=== PATIENT | male | born 1995 | race Caucasian/White ===

== ENCOUNTER → 2017-11-18 09:53 | Outpatient (CLI) | payer OTHER, SELFPAY ==
--- NOTE | 2017-11-18 10:08 | RAD_ITS ---
STUDY: X-RAY - LUMBAR SPINE REASON FOR EXAM: Male, 22 years old. Chronic low back pain. Bilateral sciatica. TECHNIQUE: 3 view(s) of the lumbar spine were obtained. COMPARISON: None FINDINGS: Normal lumbar lordosis. There is a mild levoscoliosis of the lumbar spine. There is a normal alignment of the vertebrae. Mild degree of anterior spondylosis at the L1-L2 level. Disc space narrowing at the L4-L5 and L5-S1 levels. The soft tissue structures are unremarkable. RAD/Lumbar Spine 2 or 3 Views IMPRESSION: Degenerative changes of the spine, as detailed above. Electronically Signed: Aquiles Younger MD at 15:50 EDT Tel [phone], Service support ,
== END ==
PROVIDERS: Family Provider Family Medicine; PCP Family Medicine; Visit Provider Family Medicine
DX: M54.42 Lumbago with sciatica, left side (principal); M54.41 Lumbago with sciatica, right side; G89.29 Other chronic pain
CPT/HCPCS: 72100

== ENCOUNTER 2017-11-26 17:20 | Emergency (ER) | payer OTHER, SELFPAY ==
[2017-11-26 17:02] VITALS: BP 149/86; PULSE 94; RESP 16; TEMP 37.1; O2SAT 97
[2017-11-26 17:03] VITALS: BP 149/86; PULSE 100; RESP 16; TEMP 37.1; O2SAT 96; BMI 36.6
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
[2017-11-26] MEDS: Ibuprofen 400 MG Tablet 800 MG PO (18:24)
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
== END 2017-11-26 19:00 | disposition home or self-care (01) ==
PROVIDERS: Emergency Provider Emergency Medicine; Family Provider Family Medicine; PCP Family Medicine
DX: S93.401A Sprain of unspecified ligament of right ankle, initial encounter (principal); V49.60XA Unspecified car occupant injured in collision with unspecified motor vehicles in traffic accident, initial encounter; Y93.9 Activity, unspecified; Y92.9 Unspecified place or not applicable; Y99.9 Unspecified external cause status
CPT/HCPCS: 73610; 99285

== ENCOUNTER → 2018-02-25 15:14 | Outpatient (CLI) | payer OTHER, SELFPAY ==
--- NOTE | 2018-02-25 | TONS_PTH ---
PATIENT: ASA PALACIO JES LOC: [facility] U#:[id number] AGE/SX: 29/M ROOM: RE02/25/[address]: Dr. Viet Polanco MD : 1995 BED: DIS: SPEC #: [id number] RECD: 02/26/18 13:16 STATUS: ARSENIO GAIL #: [id number] MIGUEL: 02/25/18 00:[address]: Viet Polanco DEPT: SURGICAL PATHOLOGY RECD BY: Gumaro Almendarez ENTERED: 02/26/18 13:17 SP TYPE: TONSILS OTHR DR: Dr. Rajat Main III, MD [facility] Tissues: Tonsil, NOS Procedures: Surgery Specimen Level III HEADER OPERATION: Tonsillectomy PRE-OP DIAGNOSIS: Acute tonsillitis TISSUE SUBMITTED: Tonsils (right tagged with pin) MICROSCOPIC DIAGNOSIS Right and left tonsils, bilateral tonsillectomies: Benign lymphoid follicular hyperplasia, consistent with chronic tonsillitis. Organisms consistent with actinomyces. AM:tristan 02/27/18 MICROSCOPIC DESCRIPTION Slides are reviewed. GROSS DESCRIPTION Received is one container labeled with the patient's name and designated tonsils - pin on right are two tonsils that in aggregate weigh 14.1 gm. The right tonsil has a pin on it and measures 3.5 x 2 x 2 cm. The left tonsil measures 3.6 x 1.5 x 1.5 cm. Both tonsils are similar in appearance. The external surfaces are pink-richard, smooth, glistening and somewhat lobulated. Focally they are hemorrhagic, granular and bear cautery artifact. Serial cross sections through the tonsils reveal normal tonsillar architecture. Sections are submitted in two cassettes as follows: 1 - right tonsil, 2 - left tonsil. / AM:tristan 02/26/18 TC:5 CPT: 77130 x2
== END ==
PROVIDERS: Family Provider Family Medicine; PCP Family Medicine; Visit Provider Otolaryngology Otolaryngology/Facial Plastic Surgery
DX: J03.90 Acute tonsillitis, unspecified (principal)
CPT/HCPCS: 88304

== ENCOUNTER 2019-03-22 17:30 | Emergency (ER) | payer OTHER, SELFPAY ==
[2019-03-22 17:30] VITALS: BP 134/85; PULSE 106; RESP 18
[2019-03-22 17:31] VITALS: BP 134/85; PULSE 106; RESP 18; TEMP 36.1; BMI 36.7
--- NOTE | 2019-03-22 17:45 | CT_ITS ---
STUDY: CTA OF THE BRAIN REASON FOR EXAM: Male, 23 years old. Syncope. Headaches. RADIATION DOSAGE (If Supplied By Facility): CTDIvol = ( 26.23 ) mGy, DLP = ( 1276.21 ) mGycm TECHNIQUE: CT angiography was performed with a multi-detector CT scanner. Data acquisition was obtained from the skull base through the vertex following intravenous administration of 100ML IV Isovue 300. MIP images were reconstructed from the axial data set. Post-processing of the angiographic images was performed, with multiplanar reformation and 3D reconstruction. Individualized dose optimization techniques were used for this CT. COMPARISON: None. FINDINGS: There is no acute bleed or infarct. The ventricles are normal in configuration. Normal bilateral petrous carotid arteries. Normal right cavernous carotid artery with a normal supraclinoid bifurcation. Normal left cavernous carotid artery with a normal supraclinoid bifurcation. Normal right A1 segments of the anterior cerebral artery. Normal left A1 segments of the anterior cerebral artery. Normal intact anterior communicating artery (ACOM). Normal bilateral A2 segments of the anterior cerebral arteries. Normal right M1 and M2 segments of the middle cerebral arteries, with a normal M1 bifurcation. Normal left M1 and M2 segments of the middle cerebral arteries, with a normal M1 bifurcation. Normal right posterior communicating artery (PCOM). Normal left posterior communicating artery (PCOM). Normal bilateral vertebral arteries. Normal basilar artery with a normal basilar bifurcation. The visualized bilateral superior cerebellar (SCA) arteries are normal. Normal bilateral P1, P2 and visualized P3 segments of the posterior cerebral arteries. There is no demonstrated aneurysm of the [place] of [place]. There is no demonstrated abnormality of the visualized brain. CT/CTA Head W/WO Contrast IMPRESSION: Normal CT angiograms of the brain. No acute intracranial abnormality. Electronically Signed: Chevy Duran, at 18:36 EDT Tel , Service support ,
[2019-03-22 18:45] VITALS: BP 147/80; PULSE 81; RESP 22; O2SAT 97
--- NOTE | 2019-03-22 18:45 | EKG12_ITS ---
Test Reason : Blood Pressure : / mmHG Vent. Rate : 074 BPM Atrial Rate : 074 BPM P-R Int : 172 ms QRS Dur : 098 ms QT Int : 366 ms P-R-T Axes : 028 050 021 degrees QTc Int : 406 ms Normal sinus rhythm Normal ECG Confirmed by POLLO BRUNER, CAROLINE ([id number]), science editor NAVID THOMASON ([id number]) on 03/23/2019 9:12:09 AM Referred By: NESTOR Confirmed By:CAROLINE ABAD MD
--- NOTE | 2019-03-22 18:49 | ED.RN ---
NO OLD EKGS IN MUSE
[2019-03-22] MEDS: Ketorolac 30 MG/ML Syringe IV (18:53)
[2019-03-22] MEDS: DiphenhydrAMINE 50 MG/ML Syringe 25 MG IV ×2 (18:53→19:13)
[2019-03-22] MEDS: Metoclopramide 10 MG/2 ML Vial IV (18:53)
[2019-03-22 18:57] LABS: Absolute Lymphocyte Count 1.41 X10^3/uL (0.83-4.51); Absolute Neutrophil Count 5.9 X10^3/uL (2.0-7.7); Basophil# 0.02 X10^3/uL; Basophil% 0.3 % (0-1); Eosinophil# 0.02 X10^3/uL; Eosinophils% 0.3 % (0-5); Hemoglobin 13.8 g/dL (13.0-16.5); Lymphocyte # 1.41 X10^3/ul (4.0); Lymphocyte % 17.8 % (19-41); Mean Corp Hgb Conc 32.9 g/dL (32-36); Mean Corpuscular Hgb 28.5 pg (27.0-32.0); Mean Corpuscular Volume 86.6 fL (80-94); Mean Platelet Vol. 10.7 fl (6.2-12.0); Monocyte# 0.54 X10^3/uL; Monocyte% 6.8 % (0-10); NRBC Flagged by Analyzer 0 % (0-5); Neutrophil % 74.4 % (47-70); Platelet Count 221 K/mm3 (150-450); RBC Distribution Width SD 40.9 fl (35.1-43.9); Red Blood Count 4.85 M/mm3 (4.6-6.2); White Blood Count 7.9 K/mm3 (4.4-11.0)
[2019-03-22 19:04] VITALS: BP 118/102; PULSE 103; RESP 26
[2019-03-22 19:14] LABS: Anion Gap 10 (5-15); BUN 15 mg/dL (7-18); BUN/Creat Ratio 12.9 RATIO (10-20); Calcium,Total 9.1 mg/dL (8.5-10.1); Chloride 105 mmol/L (98-107); Creatinine, Serum 1.16 mg/dL (0.70-1.30); EST Glomerular Filtration Rate 81 mL/min (>60); Est Glom Filt Rate - Afr Amer 98 mL/min (>60); Estimated Creatinine Clearance 106.85 ml/min; Glucose 88 mg/dL (74-106); Sodium Level 142 mmol/L (136-145)
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
--- NOTE | 2019-03-22 19:22 | ED.DEP ---
ED Disposition - Plan for ED Patient: Instructions: SYNCOPE, Unk Cause, HEADACHE, Unspecified Referrals: Rajat Main III, MD [Primary Care Provider] - Additional Instructions: see your Neurologist this week I recommend that you not drive until you see neurologist
[2019-03-22 19:42] VITALS: BP 138/82; PULSE 75; RESP 22; O2SAT 99
== END 2019-03-22 19:44 | disposition home or self-care (01) ==
LOC: ED 18:13
PROVIDERS: Emergency Provider Emergency Medicine; Family Provider Family Medicine; PCP Family Medicine
DX: R55 Syncope and collapse (principal); R51 Headache; F17.290 Nicotine dependence, other tobacco product, uncomplicated
CPT/HCPCS: 70496; 80048; 85025; 93005; 96374; 96375; 99284; Q9967; A4216

== ENCOUNTER → 2019-09-15 | Outpatient (CLI) | payer OTHER, SELFPAY ==
--- NOTE | 2019-09-15 16:34 | RAD_ITS ---
STUDY: X-RAY CHEST REASON FOR EXAM: Male, 24 years old. COUGH X 3 MONTHS, WORSE THE PAST 3 WEEKS TECHNIQUE: PA and lateral views of the chest. COMPARISON: 11/09/2013. FINDINGS: The lungs are clear and underexpanded. There is mild vascular crowding. There is no demonstrated pleural abnormality. Normal size heart. Normal mediastinum and trina. Normal visualized pulmonary arteries. Normal visualized aortic arch and descending thoracic aorta. Normal visualized thoracic spine. Normal visualized ribs, clavicles, and shoulders. There is no demonstrated abnormality of the visualized soft tissue structures of the upper abdomen. RAD/Chest PA and Lateral IMPRESSION: Normal x-ray examination of the chest. Electronically Signed: Parisa Montana MD at 0:53 EDT , Service support ,
== END | disposition home or self-care (01) ==
LOC: RAD.FUTURE 16:31
PROVIDERS: PCP Family Medicine; Referring Provider Otolaryngology Otolaryngology/Facial Plastic Surgery; Visit Provider Otolaryngology Otolaryngology/Facial Plastic Surgery
DX: R05 Cough (principal)
CPT/HCPCS: 71046

== ENCOUNTER → 2022-06-27 | Outpatient (CLI) | payer BC, SELFPAY | END | disposition home or self-care (01) | LOC: LABSPEC 15:06 | PROVIDERS: Referring Provider Otolaryngology Otolaryngology/Facial Plastic Surgery; Visit Provider Otolaryngology Otolaryngology/Facial Plastic Surgery | DX: J02.9 Acute pharyngitis, unspecified (principal) | CPT/HCPCS: 87070; 87077 ==

== ENCOUNTER 2022-09-04 08:05 | Emergency (ER) | payer BC, SELFPAY ==
[2022-09-04 08:05] VITALS: BP 136/88; PULSE 70; RESP 14; TEMP 36.4; O2SAT 99; BMI 42.0
--- NOTE | 2022-09-04 08:42 | ED.VIS.BACK ---
HPI History of Present Illness Chief Complaint: Back Informant: patient Onset/Context/Timing Onset: Weeks (1) Context: Gradual Onset (After repeated bending over at work without heavy lifting) Timing: Continuous (Not colicky) Quality: Aching Location: Lumbar (Right, and into right groin and testicle as well) Current Severity: Moderate Maximum Severity: Severe Worsened by: improves with Movement, Ambulation and Bending Relieved by: Remaining Still Associated Symptoms Associated Symptoms: - (Difficulty bending over to put on pants today due to pain); Negative for Numbness, Tingling, Radiation to Right Leg, Radiation to Left Leg, Fever, Abdominal Pain, Dysuria, Unable to Transfer, Urinary Retention, Urinary Incontinence, Constipation or Fecal Incontinence Narrative Narrative: Patient states 1 week ago 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 He states he and his friend both had pain in their low back, but the friend got better within a day or 2 and his has persisted. Now it is hurting into his right groin and testicle/scrotum. He denies any radiation into his right lower extremity, no weakness or numbness, no bowel or bladder dysfunction. No other injury or obvious explanation for this pain to be musculoskeletal. PFSH PFSH Medical History no medical history no medical history Home Medications ibuprofen 800 mg tablet 800 mg PO PRN PRN Pain 03/22/19 [History Last Taken Unknown] orphenadrine citrate 100 mg tablet,extended release 100 mg PO BID #14 tabs 09/04/22 [Rx Last Taken Unknown] tramadol 50 mg tablet 50 mg PO Q6H PRN pain 3 days #12 tabs 09/04/22 [Rx Last Taken Unknown] Allergy/AdvReac Type Severity Reaction Status Date / Time amoxicillin [Amoxicillin] Allergy Rash Verified 09/04/22 08:08 Social History Smoking Status: Current some day smoker tobacco type: cigarettes ROS ROS ED Constitutional Constitutional ED: Denies chills or fever(s) Gastrointestinal Gastrointestinal: Denies abdominal pain, constipation, fecal incontinence, nausea or vomiting Genitourinary Genitourinary ED: Reports other Details: no urinary retention. Right scrotal pain see HPI. ; Denies abdominal discomfort, dysuria, hematuria or urinary incontinence Musculoskeletal Musculoskeletal: Reports as per HPI and back pain; Denies neck pain Integumentary Denies rash or wounds Neurologic Neurologic: Denies headache(s), paresthesias or weakness EXAM Physical Exam Const Vital Signs: 09/04/22 08:05 Temperature 97.6 F L Temperature Source Temporal Pulse Rate 70 Respiratory Rate 14 Blood Pressure 136/88 H Blood Pressure Mean 104 Pulse Ox 99 Oxygen Delivery Method Room Air Positive well nourished and well developed General Appearance ED: well developed and NAD HEENT Negative for trauma or tenderness Eyes PERRL and EOMs intact bilaterally Neck full ROM and supple GI normal to inspection, nondistended, normoactive bowel sounds, soft to palpation and non-tender Narrative: Normal scrotum and penis, no testicular tenderness, no scrotal mass. No inguinal lymphadenopathy. No hernia palpated. Back/Spine normal to inspection Back/Spine Narrative: Able to reproduce patient's pain with palpation throughout the right lumbosacral paraspinal area including SI joints, not really tender at the sciatic notch. Lumbar Spine / Lower Back: ROM limited, paraspinal muscle tenderness right and straight leg raise negative bilaterally; Negative for lumbar spinal tenderness Extremity normal to inspection, full ROM and no pedal edema Neuro oriented x3 and no sensory deficits noted Sensorium / Orientation: alert Motor Exam: strength 5/5 throughout and clonus absent Deep Tendon Reflexes: Rt Patellar (L4): 2+, Lt Patellar (L4): 2+, Rt Ankle (S1): 2+ and Lt Ankle (S1): 2+ Deep Tendon Reflexes Back: Rt Patellar (L4): 2+, Lt Patellar (L4): 2+, Rt Ankle (S1): 2+ and Lt Ankle (S1): 2+ Plantar Reflex: Downgoing: bilateral Psych mental status grossly normal and thought process normal Skin no rashes or lesions noted and no wounds MDM MDM MDM Narrative Medical decision making narrative: Treated the patient with Toradol and Norflex while obtaining a urinalysis, screening for kidney stone. The urinalysis is negative for blood, there is some protein there, which is nonspecific. The medications did help some, but he was still having the groin pain so we thought it was reasonable to go ahead and obtain a CT of the abdomen/pelvis to evaluate further, kidney stone being the more likely, although his exam is really less consistent with that. It is negative for anything acute, but does show fatty liver. I discussed that with him and outpatient follow-up, we will treat his back pain is musculoskeletal in etiology. He is comfortable with that plan. I reviewed the CT images. My interpretation of the CT agrees with that of the radiologist. Lab Data Attestation: I reviewed the patient's lab results. Labs: Laboratory Results - last 24 hr 09/04/22 09:46 Urine Color Yellow Urine Clarity Clear Urine pH 5.0 Ur Specific [place] 1.025 Urine Protein 30 H Urine Glucose (UA) Normal Urine Ketones Negative Urine Occult Blood Negative Urine Nitrite Negative Urine Bilirubin Negative Urine Urobilinogen Normal Ur Leukocyte Esterase Negative Urine RBC 0-5 SEEN Urine WBC 0-5 SEEN Ur Squamous Epith Cells 0-5 SEEN Urine Bacteria 2+ Urine Mucus 2+ Radiography Diagnostic Testing: Clinical Impression(s) from Imaging Studies Abdomen/Pelvis CT 09/04/22 10:27 IMPRESSION: Fatty infiltration of the liver. Electronically Signed: Aquiles Younger MD at 10:54 EST , Discharge Plan Triage Chief Complaint: Back ED Provider: Khalif Bañuelos Dx/Rx/DC Orders Clinical Impression: Acute lumbosacral myofascial strain, Fatty liver Instructions: ED Back Sprain/Strain Prescriptions: New orphenadrine citrate 100 mg tablet extended release 100 mg PO BID Qty: 14 0RF tramadol 50 mg tablet 50 mg PO Q6H PRN (Reason: pain) 3 Days Qty: 12 0RF No Action ibuprofen 800 MG tablet 800 mg PO PRN PRN (Reason: Pain) Label Comments: TAKE 1 TABLET BY MOUTH EVERY 6 TO 8 HOURS NEEDED FOR PAIN MAX 3 IN24 HOURS Primary Care Provider: Nena Barrios Referrals: Nena Barrios, PA [Primary Care Provider] - 1-2 Weeks Disposition Disposition: Home, Self Care
[2022-09-04] MEDS: Orphenadrine 60 MG/2 ML Ampul IM (09:05)
[2022-09-04] MEDS: Ketorolac 60 MG/2 ML Vial IM (09:05)
[2022-09-04 09:55] LABS: Color, Urine Yellow (Yellow); Glucose, Dipstick Normal (Normal); Ketone-Dipstick Negative (Negative); Leukocyte Esterase-Dipstick Negative /ul (Negative); Nitrite-Dipstick Negative (Negative); Occult Blood-Urine Negative /ul (Negative); Protein-Dipstick 30 mg/dl (Negative); Specific Gravity, Urine 1.025 (1.002-1.030); Urine Bilirubin Dipstick Negative (Negative); Urine Clarity Clear (Clear); Urine Urobilinogen Normal (Normal)
[2022-09-04 10:03] LABS: Bacteria 2+ /hpf (None Seen); Mucous, Urine 2+ /hpf (<or=2+); Red Blood Cells-Urine 0-5 SEEN /hpf (0-5); Squamous Epithelial Cells - UA 0-5 SEEN /hpf (0-5); White Blood Cells 0-5 SEEN /hpf (0-5)
--- NOTE | 2022-09-04 10:27 | CT_ITS ---
STUDY: CT ABDOMEN AND PELVIS WITHOUT CONTRAST REASON FOR EXAM: Male, 26 years old. Right flank pain and low back pain. RADIATION DOSAGE (If Supplied By Facility): CTDIvol = ( 18.64 ) mGy, DLP = ( 1622.80 ) mGycm TECHNIQUE: Transaxial images were obtained from the dome of the diaphragm to the symphysis pubis without oral contrast, and without intravenous contrast. Sagittal and coronal images were reconstructed. Individualized dose optimization techniques were used for this CT. COMPARISON: Comparison is made with prior study dated November 09, 2013. FINDINGS: The visualized lung bases are unremarkable. The visualized portions of the heart are within normal limits. There is decreased attenuation of the liver consistent with steatosis. Normal gallbladder and extrahepatic biliary system. Normal spleen. Normal pancreas. Normal bilateral adrenal glands. Normal right kidney. Normal left kidney. Normal visualized stomach. Normal small intestine. Normal colon. The appendix is visualized and appears normal. Normal abdominal aorta. Normal inferior vena cava. Normal retroperitoneum. Normal urinary bladder. Normal abdominal wall. There are mild degenerative changes of the visualized lumbar spine. Loss of the normal lumbar lordosis. CT/Abdomen/Pelvis without Cont IMPRESSION: Fatty infiltration of the liver. Electronically Signed: Aquiles Younger MD at 10:54 EST ,
[2022-09-04 12:36] VITALS: BP 129/87; PULSE 86; RESP 14; O2SAT 99
== END 2022-09-04 12:37 | disposition home or self-care (01) ==
PROVIDERS: Emergency Provider Emergency Medicine; PCP Physician Assistant; Visit Provider Emergency Medicine
DX: S39.012A Strain of muscle, fascia and tendon of lower back, initial encounter (principal); K76.0 Fatty (change of) liver, not elsewhere classified; F17.210 Nicotine dependence, cigarettes, uncomplicated; X50.1XXA Overexertion from prolonged static or awkward postures, initial encounter; Y99.0 Civilian activity done for income or pay
CPT/HCPCS: 74176; 81001; 96372; 99282

== ENCOUNTER 2024-03-01 00:22 | Emergency (ER) | payer BC, SELFPAY ==
[2024-03-01] VITALS (8 sets, daily range): BP systolic 120–142; BP diastolic 71–91; PULSE 88–102; RESP 20–28; TEMP 37.1–37.6; O2SAT 94–98; BMI 38.4
--- NOTE | 2024-03-01 00:52 | EKG12_ITS ---
Test Reason : CP Blood Pressure : / mmHG Vent. Rate : 101 BPM Atrial Rate : 101 BPM P-R Int : 178 ms QRS Dur : 090 ms QT Int : 326 ms P-R-T Axes : 044 049 025 degrees QTc Int : 422 ms Sinus tachycardia Otherwise normal ECG Confirmed by POLLO BRUNER, CAROLINE ([id number]), offline editor MORGAN GUNTER ([id number]) on 03/03/2024 8:15:58 AM Referred By: TL Confirmed By:CAROLINE ABAD MD
--- NOTE | 2024-03-01 00:52 | CT_ITS ---
EXAM: CT HEAD WITHOUT INTRAVENOUS CONTRAST CLINICAL INDICATION: headache TECHNIQUE: Multiple axial images were obtained of the head without intravenous contrast. This CT exam was performed using one or more of the following dose reduction techniques: automated exposure control, adjustment of the mA and/or kV according to patient size, and/or use of iterative reconstruction technique. RADIATION DOSE: CTDIvol = 44.99 mGy, DLP = 812.98 mGy-cm COMPARISON: Head CT 03/23/2011 FINDINGS: BRAIN AND EXTRA-AXIAL SPACES: Unremarkable. No intra- or extra-axial hemorrhage. No evidence of acute infarct. No intracranial mass or mass effect. There is preservation of the borges/white matter interface. Posterior fossa structures are unremarkable. Ventricles are appropriate for age. No hydrocephalus. Basal cisterns are patent. BONES/JOINTS: Unremarkable. No discrete lytic or blastic abnormalities. SINUSES: Unremarkable as visualized. Clear. MASTOID AIR CELLS: Unremarkable. Clear. ORBITS: Visualized globes, extraocular muscles, optic nerves and retrobulbar fat appear unremarkable. CT/Brain/Head without Contrast IMPRESSION: Negative head/brain CT without intravenous contrast. Electronically Signed: Yoni Nair MD at 1:38 EDT ,
[2024-03-01 00:59] LABS: Absolute Neutrophil Count 5.8 X10^3/uL (2.0-7.7); Basophil# 0.03 X10^3/uL; Basophil% 0.4 % (0-1); Eosinophil# 0.05 X10^3/uL; Eosinophils% 0.7 % (0-5); Hemoglobin 13.4 g/dL (13.0-16.5); Lymphocyte % 6.8 % (19-41); Mean Corp Hgb Conc 32.7 g/dL (32-36); Mean Corpuscular Hgb 27.9 pg (27.0-32.0); Mean Corpuscular Volume 85.2 fL (80-94); Mean Platelet Vol. 11.7 fl (6.2-12.0); Monocyte# 0.95 X10^3/uL; NRBC Flagged by Analyzer 0 % (0-5); Neutrophil # 5.76 X10^3/uL (2.7-7.7); Neutrophil % 78.8 % (47-70); POSITIVE DIFFERENTIAL YES; Platelet Count 180 K/mm3 (150-450); RBC Distribution Width CV 13.2 % (11.6-14.6); RBC Distribution Width SD 41.1 fl (35.1-43.9); Red Blood Count 4.81 M/mm3 (4.6-6.2); White Blood Count 7.3 K/mm3 (4.4-11.0)
[2024-03-01] MEDS: DiphenhydrAMINE 50 MG/ML Syringe 25 MG IV (01:09)
[2024-03-01] MEDS: 0.9% Normal Saline (500mL Bag) 500 ML 999 ML IV (01:09)
[2024-03-01] MEDS: Metoclopramide 10 MG/2 ML Vial 5 MG IV (01:10)
[2024-03-01 01:18] LABS: Anion Gap 8 (5-15); BUN 16 mg/dL (7-18); BUN/Creat Ratio 12.3 RATIO (10-20); Calcium,Total 9.3 mg/dL (8.5-10.1); Chloride 107 mmol/L (98-107); EST Glomerular Filtration Rate 69 mL/min (>60); Est Glom Filt Rate - Afr Amer 83 mL/min (>60); Estimated Creatinine Clearance 115.12 ml/min; Glucose 115 mg/dL (74-106); Potassium 3.6 mmol/L (3.5-5.1); Sodium Level 139 mmol/L (136-145); Troponin-I HS (w/2H Reflex) 4 pg/mL (3.0-78.0)
--- NOTE | 2024-03-01 01:30 | RAD_ITS ---
EXAM: XR CHEST, 2 VIEWS CLINICAL INDICATION: chest pain TECHNIQUE: Frontal and lateral views of the chest. COMPARISON: 2 view chest 09/15/2019 FINDINGS: LUNGS AND PLEURAL SPACES: Unremarkable. No consolidation or edema. No pneumothorax. No effusion. HEART: Unremarkable. Cardiac silhouette not enlarged. MEDIASTINUM: Central airways and mediastinal contour are unremarkable. BONES/JOINTS: Unremarkable. No acute fracture. SOFT TISSUES: Unremarkable. RAD/Chest PA and Lateral IMPRESSION: No radiographic evidence of acute cardiopulmonary disease. Electronically Signed: Yoni Nair MD at 2:04 EDT ,
--- NOTE | 2024-03-01 01:53 | ED.VIS.CHEST ---
HPI History of Present Illness Chief Complaint: Chest Pain Informant: patient and spouse/S.O. Narrative Narrative: Presents chest heaviness tingling down left arm started couple hours prior to arrival. Mild dyspnea. No cough. No vomiting. Nontraumatic headache for 2 days throbbing. No medications taken. He was at a coffee tasting today at 1 PM small sips of coffee finished at 2 PM. He felt slight racing heart around 6 PM. Denies recent travel, surgery, or immobilizations. No history of PE or DVT. He smokes occasional cigars. Grandfather with MS at age of 70. Denies hypertension, diabetes or hyperlipidemia. Denies history of similar. Prior Similar Symptoms: No CVD Risk Factors: Negative for Hypertension, Diabetes, Hypercholesterolemia, Family History 1' </=55 or Smoking PE Risk Factors: Negative for Recent Travel/Surgery, Recent Immobilization or Prior DVT or PE [facility] Medical History no medical history Home Medications ?Medication ?Instructions ?Recorded ?Last Taken ?Type NK 03/01/24 Unknown History Allergy/AdvReac Type Severity Reaction Status Date / Time amoxicillin (Amoxicillin) Allergy Rash Verified 03/01/24 00:24 Surgical History History of tonsillectomy Social History Smoking Status: Current some day smoker tobacco type: cigarettes ROS ROS ED Constitutional Constitutional ED: Denies chills, fever(s) or sweats Eyes Eyes: Denies change in vision ENT ENT ED: Denies dysphagia or sore throat Cardiovascular Cardiovascular: Reports chest pain; Denies leg edema, palpitations or racing heartbeat Respiratory/Chest Respiratory/Chest: Reports dyspnea; Denies cough or dyspnea on exertion Gastrointestinal Gastrointestinal: Denies abdominal pain, diarrhea, nausea or vomiting Genitourinary Genitourinary ED: Denies dysuria, hematuria or urinary frequency Musculoskeletal Musculoskeletal: Denies back pain, extremity pain or neck pain Integumentary Denies rash or wounds Neurologic Neurologic: Reports headache(s); Denies paresthesias or weakness EXAM Physical Exam Const Vital Signs: 03/01/24 00:22 03/01/24 00:25 03/01/24 01:16 Temperature 99.6 F H Temperature Source Oral Pulse Rate 102 H 90 Respiratory Rate 26 H 20 H Respiratory Effort Normal Non-Labored Blood Pressure 142/80 H Blood Pressure Mean 100 Pulse Ox 96 98 Oxygen Delivery Method Room Air 03/01/24 01:30 03/01/24 01:36 03/01/24 01:45 Temperature Temperature Source Pulse Rate 93 88 Respiratory Rate 27 H 27 H Respiratory Effort Blood Pressure 120/71 140/86 H Blood Pressure Mean 79 101 Pulse Ox 97 98 Oxygen Delivery Method 03/01/24 02:00 03/01/24 02:15 Temperature 98.7 F Temperature Source Oral Pulse Rate 89 91 Respiratory Rate 28 H 27 H Respiratory Effort Blood Pressure 140/87 H 142/91 H Blood Pressure Mean 102 105 Pulse Ox 97 96 Oxygen Delivery Method Room Air Room Air Positive well nourished and well developed General Appearance ED: well developed and NAD HEENT Reports moist mucous membranes normocephalic and atraumatic Eyes EOMs intact bilaterally and conjunctivae normal General Eye ED: Yes normal appearance of both eyes Neck no lymphadenopathy and supple Neck Narrative: No meningismus General: Negative for tenderness Chest Wall Chest: Negative for tenderness Resp normal respiratory effort and normal air movement Effort and Inspection: symmetric chest movement; Negative for respiratory distress Cardio regular rhythm and no murmurs Rate: tachycardic Peripheral Pulses: pulses 2+ throughout GI normal to inspection, nondistended, normoactive bowel sounds and non-tender Palpation: Negative for guarding or rebound tenderness present Back/Spine no CVA tenderness and no thoracic nor lumbar tenderness Extremity normal to inspection General Extremety ED: Negative for edema or tenderness General Extremity: Negative for edema Neuro oriented x3, CN's II-XII intact bilaterally and no sensory deficits noted Sensorium / Orientation: awake and alert Skin no rashes or lesions noted and no wounds Heart Score History: Slightly/Non-Suspicious ECG: Normal Age: </= 45 years Risk Factors: 1 or 2 Risk Factors Troponin: </= Normal Limit Score: 1 MDM MDM MDM Narrative Medical decision making narrative: Interventions / MDM: Differential diagnosis: Atypical chest pain, headache Diagnosis considered but do not suspect: No clinical meningitis, pulmonary embolism with low risk Wells criteria with a negative D-dimer. Pneumothorax however chest x-ray negative. ACS however EKG without ischemic findings and negative cardiac enzymes. My EKG interpretation: Sinus rate of 101, no ST changes isolated T wave version leads III. Nonspecific. Imaging independently reviewed and interpreted by myself: 2 view chest x-ray: No acute process. CT brain: No acute process also read by radiology. External documents reviewed: N/A Test considered but not ordered:N/A ED course: Presenting with chest tightness arm tingling. EKG nonspecific T wave inversion leads I. Low risk Wells criteria for PE with tachycardia. Cardiac workup initiated along with D-dimer. No clinical meningitis. New nontraumatic headache for [address] head ordered. Fluids Reglan Benadryl ordered for symptoms. Will reevaluate. 0145: Initial troponin D-dimer negative. CT head negative. Chest x-ray added negative. 0205: Symptoms subsided. Awaiting for delta troponin. 0330: Repeat troponin negative. Remains symptom-free. Discharged outpatient follow-up, return precaution discussed. All questions were answered. Re-evaluation: stable Disposition discussed with patient/family/significant other: Patient and significant other Case discussed with consulting clinician: N/A This note was generated with [employer] dictation software. It may contain incorrect words, spelling, and punctuation that were not noted in checking the note before signing. Lab Data Attestation: I reviewed the patient's lab results. Labs: Laboratory Results - last 24 hr 03/01/24 03/01/24 00:25 02:25 WBC 7.3 RBC 4.81 Hgb 13.4 Hct 41.0 MCV 85.2 MCH 27.9 MCHC 32.7 RDW Std Deviation 41.1 RDW Coeff of Lex 13.2 Plt Count 180 MPV 11.7 Immature Gran % (Auto) 0.300 Neut % (Auto) 78.8 H Lymph % (Auto) 6.8 L [place] % (Auto) 13.0 H Eos % (Auto) 0.7 Baso % (Auto) 0.4 Absolute Neuts (auto) 5.8 Absolute Lymphs (auto) 0.50 L Nucleated RBC % 0 D-Dimer Quant (PE/DVT) 0.40 Sodium 139 Potassium 3.6 Chloride 107 Carbon Dioxide 24.0 Anion Gap 8 BUN 16 Creatinine 1.30 Estim Creat Clear Calc 115.12 Est GFR (MDRD) Af Amer 83 Est GFR (MDRD) Non-Af 69 BUN/Creatinine Ratio 12.3 Glucose 115 H Calcium 9.3 Troponin I High Sens 4 4 Radiography Diagnostic Testing: Clinical Impression(s) from Imaging Studies Brain CT 03/01/24 00:52 IMPRESSION: Negative head/brain CT without intravenous contrast. Electronically Signed: Yoni Nair MD at 1:38 EDT Reading Location ID and State: [facility] / [place] Tel , Service support , Chest X-Ray 03/01/24 01:30 IMPRESSION: No radiographic evidence of acute cardiopulmonary disease. Electronically Signed: Yoni Nair MD at 2:04 EDT , Discharge Plan Triage Chief Complaint: Chest Pain ED Provider: Kye Cobian Dx/Rx/DC Orders Clinical Impression: Chest pain, Headache Instructions: Self-Care for Headaches, ED Chest Pain, Uncertain Cause Prescriptions: No Action NK Primary Care Provider: Nena Barrios Referrals: Nena Barrios PA [Primary Care Provider] - 3-5 Days Activity Restrictions/Additional Instructions: Cardiac workup including D-dimer negative. Chest x-ray negative. CT brain negative. Follow-up with your doctor further testing as an outpatient. Symptoms recurs or worsens, return to ED for reevaluation. Print Language: Dominican Disposition Disposition: Home, Self Care
[2024-03-01 02:56] LABS: Reflex Troponin-HS? (from REC) Y
[2024-03-01 03:29] LABS: Troponin-I HS 4 pg/mL (3.0-78.0)
== END 2024-03-01 03:40 | disposition home or self-care (01) ==
PROVIDERS: Emergency Provider Emergency Medicine; PCP Physician Assistant; Visit Provider Emergency Medicine
DX: R07.9 Chest pain, unspecified (principal); R51.9 Headache, unspecified; F17.210 Nicotine dependence, cigarettes, uncomplicated; F17.290 Nicotine dependence, other tobacco product, uncomplicated
CPT/HCPCS: 70450; 71046; 80048; 84484; 85025; 85379; 93005; 96361; 96374; 96375; 99284

== ENCOUNTER 2024-04-27 17:40 | Emergency (ER) | payer BC, SELFPAY ==
[2024-04-27 17:41] VITALS: BP 135/108; PULSE 102; RESP 16; TEMP 37.1; O2SAT 99; BMI 38.2
--- OUTSIDE RECORDS SUMMARY | 2024-04-27 20:12 | XMS RPT_ITS | CCD ---
Author Organization [facility] Care Team Providers Care Psychic Reader Name Role Phone Nena Barrios PA-C Primary Care Provider [phone] Nena BARRIOS Primary Care Unavailable Nena BARRIOS Primary Care Unavailable Nena BARRIOS Primary Care Unavailable Nena BARRIOS Primary Care Unavailable JOSSELIN GARIBAY Referring Unavailable JOSSELIN GARIBAY Referring Unavailable Nena BARRIOS Primary Care Unavailable JOSSELIN GARIBAY Attending Unavailable Nena BARRIOS Primary Care Unavailable Nena Barrios PA-C Primary Care Provider Allergies Allergy Classification Reported Allergen(s) Allergy Type Date of Onset Reaction(s) Facility (14 sources) Amoxicillin; Translations: [AMOXICILLIN] Drug Allergy 01-11-2011 Rash [facility] Medications Current Medications Medication Drug Class(es) Dates Sig (Normalized) Sig (Original) doxycycline hyclate 100 mg oral tablet (2 sources) Tetracycline-class Drug Start: 4 End: 4 take 1 tablet by mouth twice daily doxycycline (VIBRA-TABS) 100 mg tablet Take 1 tablet by mouth two times a day for 7 days. 14 tablet 0 10/21/2023 10/28/2023 Active methylPREDNISolone (1 source) Corticosteroid Start: 2 End: 2 methylPREDNISolone (MEDROL, PAULIE,) 4 mg Dose-Pack Indications: Poison janelle Follow dosing instructions, take with food. 1 Package 0 01/29/2022 02/04/2022 Active Comment on above: Follow dosing instru ctions, take with food. multivitamin tablet (11 sources) take 1 tablet by mouth once daily multivitamin tablet Take 1 tablet by mouth once daily. Active take 1 tablet by mouth once loc y multivitamin tablet Take 1 tablet by mouth once daily. 0 Active Comment on above: Take 1 tablet by [facility] once daily. predniSONE 20 mg oral tablet (5 sources) Start: 02-11-2024 End: 02-16-2024 take 2 tablets by mouth once daily predniSONE (DELTASONE) 20 mg tablet Take 2 tablets by mouth once daily for 5 days. 10 tablet 0 02/11/2024 02/16/2024 Active Start: 10-21-2023 End: 10-25-2023 take 2 tablets by mouth once daily at mealtime predniSONE (DELTASONE) 20 mg tablet Take 2 tablets by mouth once daily for 4 days. Take daily with food. 8 tablet 0 10/21/2023 10/25/2023 Active Start: 03-20-2023 End: 03-29-2023 predniSONE (DELTASONE) 10 mg tablet Indications: Rash Take 4 tabs daily for 3 days, then 2 tabs daily for 3 days, then 1 tab daily for 3 days with food. 21 tablet 0 03/20/2023 03/29/2023 Active Start: 01-16-2022 End: 01-28-2022 predniSONE (DELTASONE) 10 mg tablet Take 6 tabs for 3 days, then 4 tabs for 3 days, then 2 tabs for 3 days then 1 tab for 3 days with food. 39 tablet 0 01/16/2022 01/28/2022 Active Comment on above: Take 6 tabs for 3 da ys, then 4 tabs for 3 days, then 2 tabs for 3 days then 1 tab for 3 days with food. Take 4 tabs daily fo r 3 days, then 2 tabs daily for 3 days, then 1 tab daily for 3 days with food. triamcinolone acetonide 1 mg/ml topical cream (2 sources) Corticosteroid Start: 01-16-2022 End: 01-31-2022 triamcinolone acetonide (KENALOG) 0.1 % cream Apply 1 application to affected area three times daily for 15 days. Apply sparingly to area for rash/itching. 60 g 0 01/16/2022 01/31/2022 Active Comment on above: Apply 1 application to affected area three times daily for 15 days. Apply sparingly to area for rash/itching. Completed/Discontinued Medications Medication Drug Class(es) Dates Sig (Normalized) Sig (Original) Acetaminophen (2 sources) ACETAMINOPHEN (TYLENOL EXTRA STRENGTH ORAL) Take by mouth as needed. 0 Active Comment on above: Take by mouth as nee ded. acetaminophen 325 mg / butalbital 50 mg / caffeine 40 mg oral tablet (8 sources) Barbiturate, Central Nervous System Stimulant, Methylxanthine Start: 04-03-2022 End: 03-10-2024 take 1 tablet by mouth every four hours as needed acetaminophen 325 mg-caffeine 40 mg-butalbital 50 mg (FIORICET) per tablet Take 1 tablet by mouth every 4 hours as needed. 20 tablet 04/03/2022 03/10/2024 Discontinued Comment on above: Take 1 tablet by laly th every 4 hours as needed. [id number] 200 actuat albuterol 0.09 mg/actuat metered dose inhaler (5 sources) beta2-Adrenergic Agonist Start: 10-21-2023 End: 03-10-2024 take 2 puff(s) by inhalation every four hours as needed for wheezing albuterol HFA (PROVENTIL HFA, VENTOLIN HFA) 90 mcg/actuation inhaler Inhale 2 Puffs as instructed every 4 hours as needed for wheezing/shortness of breath. 6.7 g 10/21/2023 03/10/2024 Discontinued benzonatate 100 mg oral capsule (4 sources) Non-narcotic Antitussive Start: 10-21-2023 End: 03-10-2024 take 1 capsule by mouth every eight hours as needed benzonatate (TESSALON PERLES) 100 mg capsule Take 1 capsule by mouth three times a day as needed. 12 capsule 10/21/2023 03/10/2024 Discontinued fluticasone propionate 0.05 mg/actuat metered dose nasal spray (1 source) Corticosteroid Start: 2018 End: 01-16-2022 take 2 spray(s) by mouth once daily fluticasone (FLONASE) 50 mcg/actuation nasal spray Use 2 Sprays in each nostril once daily. Rinse mouth after use. 1 Bottle 11 2018 01/16/2022 Discontinued (Discontinued by Patient) Comment on above: Use 2 Sprays in each nostril once daily. Rinse mouth after use. MULTIVITAMIN ORAL (1 source) End: 01-16-2022 MULTIVITAMIN ORAL Take by mouth once daily. 0 01/16/2022 Discontinued (Discontinued by Patient) Comment on above: Take by mouth once d aily. Problems Active Problems Problem Classification Problem Date Documented Da te Episodic/Chronic Allergic reactions (2 sources) Contact dermatitis due to plants; Translations: [Unspecified contact dermatitis due to plants, except food] Episodic Diabetes mellitus without complication (2 sources) Increased glucose level; Translations: [Other abnormal glucose] Onset: 03-14-2024 03-10-2024 Episodic Headache; including migraine (20 sources) Chronic intractable migraine without aura; Translations: [Chronic migraine without aura, intractable, without status migrainosus] Onset: 11-18-2017 11-18-2017 Chronic Malaise and fatigue (3 sources) Fatigue; Translations: [Other fatigue] Onset: 03-14-2024 03-10-2024 Episodic Nonspecific chest pain (4 sources) Chest discomfort; Translations: [Other chest pain] Onset: 03-14-2024 03-10-2024 Episodic Other hereditary and degenerative nervous system conditions (1 source) Restless legs; Translations: [Restless legs syndrome] 03-10-2024 Chronic Other hereditary and degenerative nervous system conditions (1 source) Restless legs syndrome; Translations: [Restless legs] Onset: 03-14-2024 Chronic Other liver diseases (1 source) Fatty (change of) liver, not elsewhere classified; Translations: [Other chronic nonalcoholic liver disease] Chronic Other lower respiratory disease (2 sources) Cough; Translations: [Acute cough] 10-21-2023 Episodic Other male genital disorders (1 source) Pain of right testicle; Translations: [Right testicular pain] Episodic Other nutritional; endocrine; and metabolic disorders (14 sources) Obese class II; Translations: [Obesity, unspecified] Onset: 09-27-2017 09-27-2017 Chronic Other nutritional; endocrine; and metabolic disorders (1 source) Excessive thirst; Translations: [Polydipsia] 03-10-2024 Episodic Other nutritional; endocrine; and metabolic disorders (1 source) Polydipsia; Translations: [Polydipsia] Onset: 03-14-2024 Episodic Other screening for suspected conditions (not mental disorders or infectious disease) (2 sources) Patient encounter status; Translations: [Encounter for screening for lipoid disorders] Episodic Other skin disorders (1 source) Eruption; Translations: [Rash and other nonspecific skin eruption] 03-20-2023 Episodic Other upper respiratory infections (1 source) Chronic sinusitis; Translations: [Chronic sinusitis, unspecified] 10-21-2023 Chronic Other upper respiratory infections (1 source) Sore throat symptom; Translations: [Acute pharyngitis, unspecified] 02-11-2024 Episodic Residual codes; unclassified (1 source) Obstructive sleep apnea syndrome; Translations: [Obstructive sleep apnea (adult) (pediatric)] 03-10-2024 Chronic Residual codes; unclassified (1 source) Obstructive sleep apnea (adult) (pediatric); Translations: [RAKESH (obstructive sleep apnea)] Onset: 04-02-2024 Chronic Residual codes; unclassified (2 sources) FH: premature coronary heart disease; Translations: [Family history of ischemic heart disease and other diseases of the circulatory system] 03-10-2024 Episodic Residual codes; unclassified (1 source) Family history of ischemic heart disease and other diseases of the circulatory system; Translations: [Family history of early CAD] Onset: 03-10-2024 Episodic Unclassified (1 source) Acute cough; Translations: [Acute cough] Onset: 10-21-2023 Past or Other Problems Problem Classification Problem Date Documented Date Episodic/Chronic Attention-deficit, conduct, and disruptive behavior disorders (8 sources) Attention-deficit hyperactivity disorder, unspecified type; Translations: [Attention deficit disorder with hyperactivity] Onset: 02-23-2006 Resolved: 09-27-2017 09-27-2017 Chronic Delirium, dementia, and amnestic and other cognitive disorders (8 sources) Postconcussion syndrome; Translations: [Postconcussional syndrome] Onset: 01-11-2011 Resolved: 09-27-2017 09-27-2017 Chronic Other circulatory disease (14 sources) Prehypertension; Translations: [Elevated blood-pressure reading, without diagnosis of hypertension] Onset: 09-27-2017 09-27-2017 Episodic Other connective tissue disease (8 sources) Iliotibial band friction syndrome of right knee; Translations: [Iliotibial band syndrome, right leg] Onset: 06-30-2014 Resolved: 09-27-2017 09-27-2017 Episodic Other nervous system disorders (13 sources) Magnetic resonance imaging of brain abnormal; Translations: [White matter disease, unspecified] Onset: 02-19-2012 02-19-2012 Episodic Other nutritional; endocrine; and metabolic disorders (8 sources) Body mass index 40+ - severely obese; Translations: [Morbid (severe) obesity due to excess calories] Onset: 10-21-2017 Resolved: 11-18-2017 11-18-2017 Chronic Spondylosis; intervertebral disc disorders; other back problems (20 sources) Chronic low back pain; Translations: [Lumbago with sciatica, left side] Onset: 02-23-2006 Resolved: 09-27-2017 11-18-2017 Episodic Results Test Name Value Interpretation Reference Range Facility [facility] 04-22-2024 [facility] Telephone (FAMPWS) ASA MATAMOROS ([id number]) 1995 M Date Time Provider Department 04/22/24 JOSSELIN GARIBAY During your visit today, we recorded the following information about you: Josselin Garibay APRN.[facility] 04/22/2024 12:57 PM Signed Can please let patient know that I received his sleep study. It does confirm at least mild sleep apnea, but the home studies can underestimate the severity. Treatment of mild sleep apnea can include weight loss, positional therapy, treatment of allergies, oral appliance therapy or ENT evaluation of any airway abnormalities. PAP therapy may be considered in patients with documented symptoms of daytime sleepiness, impaired cognition, mood disorder, insomnia, or documented hypertension, ischemic heart disease, or history of stroke. Therefore, if he is having symptoms associated with sleep apnea, like the daytime sleepiness, we can definitely consider restarting cpap treatment. Please let me know how patient would like to proceed. Josselin Garibay APRN.Concepcion Hussein LPN 04/22/2024 1:19 PM Signed Pt notified of results/provider response. Pt states he see's Dr. Polanco at [facility] so he will schedule an appt with him to further discuss. Concepcion Grover LPN Allergies As of Date: 04/22/2024 Noted Allergy Reaction AMOXCILLIN (AMOXICILLIN) 01/11/2011 2 - Rash Date Reviewed: 03/10/2024 Reviewed by: Concepcion Grover LPN - Fully Assessed Reason for Visit: Results [95] Prescriptions as of 04/22/2024 - multivitamin tablet Take 1 tablet by mouth once daily. Meds Comments as of 03/16/2019: 03/16/19: only takes a multivitamin as a daily medication. Jen Downing RN Problem List As Of Date 04/22/2024 Noted Resolved Lumbago [M54.50] 02/23/2006 09/27/2017 Attention deficit disorder with hyperactivity(3*200509/27/2017 Postconcussion syndrome [F07.81] 01/11/2011 09/27/2017 White matter abnormality on MRI of brain [R90.8*02/19/2012 Iliotibial band syndrome of right side [M76.31] 06/30/2014 09/27/2017 Prehypertension [R03.0] 09/27/2017 Obesity, Class II, BMI 35-39.9 [E66.812] 09/27/2017 Obesity, Class III, BMI 40-49.9 (morbid obesity*10/21/2017 11/18/2017 Intractable chronic migraine without aura and w*11/18/2017 Chronic bilateral low back pain with bilateral *11/18/2017 Tension headache [G44.209] 05/04/2022 Encounter Status:Closed by CONCEPCION GROVER on 04/22/24 [facility] ([id number]) 1995 M Date Time Provider Department 04/22/24 JOSSELIN GARIBAY During your visit today, we recorded the following information about you: Josselin Garibay APRN.[facility] 04/22/2024 5:04 PM Signed Can please let patient know that I received notice that it looks like the stress echo testing is not being approved by his insurance. I went ahead and changed the stress test to a plain treadmill stress test. I also ordered a separate echocardiogram. The previous test will need to be cancelled. Can we please try to help schedule these? Radha Del Toro LPN 04/23/2024 10:43 AM Signed Patient notified of order changes, verbalizes understanding of instructions. Radha Del Toro LPN . Allergies As of Date: 04/22/2024 Noted Allergy Reaction AMOXCILLIN (AMOXICILLIN) 01/11/2011 2 - Rash Date Reviewed: 03/10/2024 Reviewed by: Concepcion Grover LPN - Fully Assessed Reason for Visit: Orders [681] Primary Visit Diagnosis:Abnormal EKG [R94.31] Other Visit Diagnoses:Chest pain, unspecified type [R07.9] Chest discomfort [R07.89] Family history of early CAD [Z82.49] Fatigue, unspecified type [R53.83] Order(s):ECHO [254664] Order #: [id number]: 1 FUTURE EXERCISE STRESS ECG (WITHOUT IMAGING) [SLWEHI03] Order #: [id number]: 1 FUTURE Prescriptions as of 04/23/2024 - multivitamin tablet Take 1 tablet by mouth once daily. Meds Comments as of 03/16/2019: 03/16/19: only takes a multivitamin as a daily medication. Jen Downing RN Problem List As Of Date 04/22/2024 Noted Resolved Lumbago [M54.50] 02/23/2006 09/27/2017 Attention deficit disorder with hyperactivity(3*200509/27/2017 Postconcussion syndrome [F07.81] 01/11/2011 09/27/2017 White matter abnormality on MRI of brain [R90.8*02/19/2012 Iliotibial band syndrome of right side [M76.31] 06/30/2014 09/27/2017 Prehypertension [R03.0] 09/27/2017 Obesity, Class II, BMI 35-39.9 [E66.812] 09/27/2017 Obesity, Class III, BMI 40-49.9 (morbid obesity*10/21/2017 11/18/2017 Intractable chronic migraine without aura and w*11/18/2017 Chronic bilateral low back pain with bilateral *11/18/2017 Tension headache [G44.209] 05/04/2022 Encounter Status:Closed by RADHA DEL TORO on 04/23/24 Normal [facility] POLYSOMNOGRAM (PSG)/HOME SLE EP APNEA TEST (HSAT)on 04-03-2024 POLYSOMNOGRAM (PSG)/HOME SLEEP APNEA TEST (HSAT) [facility] at [address], [address], [place] [address] ; Home Sleep Apnea Test (HSAT) Study Report Name: ASA MATAMOROS Date of Study: 04/03/2024 CC#: [id number] Age: 28 (: 1995) ESS: 10/22 Neck Circ. (cm): 44.0 Height (cm): 180.0 Weight (kg): 124.0 BMI: 38.3 Referring Provider: JOSSELIN GARIBAY Mail code: N / A Sleep history: The patient is a 28 year old male with a history of obstructive sleep apnea. The patient had a previous PSG on 03/27/2013 which showed an overall AHI of 18.1, a supine AHI of 18.1, a REM AHI of 15.8, ROSSI of 0 with an oxygen saturation alicja of 81%. A PAP titration on 04/10/2013 recommended CPAP at a setting of 9 cmH2O. The patient is not using PAP therapy at home. The patient is here for reassessment of obstructive sleep apnea due to weight loss since the last sleep study. The patient endorses being a habitual prone sleeper. Pertinent medical history: Insomnia, Obesity, Obstructive sleep apnea, Migraine headaches Medications: None Sleep procedure: PSG unattended Type III, minimum of 4 parameters (40170) Procedure: This study was performed using a Type III ambulatory PSG device and was unattended. The patient was instructed on proper use of the device by a registered magnetic resonance technologist. The monitored parameters included heart rate, oxygen saturation, continuous airflow with thermistor and nasal pressure transducer, snoring via nasal pressure transducer, chest and abdominal effort, and body position. SHEY definition: Respiratory event index (SHEY), calculated as respiratory events x 60 / TRT (total recording time in minutes). Note: the apnea hypopnea index has been replaced by the respiratory event index for home sleep apnea test. Since the home sleep apnea test does not measure sleep, the SHEY is most accurate index of respiratory events. The SHEY is a surrogate of the AHI per the AASM Manual for Scoring of Sleep and Associated Events version 3. Apnea definition: The peak signal excursions drop by >90% of pre-event baseline using an oronasal thermal sensor (diagnostic study), PAP device flow (titration study) or an alternative apnea sensor (diagnostic study). The duration of the >90% drop in signal excursion is >=10 seconds. Hypopnea definition: The peak signal excursions drop by >= 30% of pre-event baseline using nasal pressure (diagnostic study), PAP device flow (titration study) or an alternative hypopnea sensor (diagnostic study). The duration of the >= 30% drop in signal excursion is >=10 seconds. There is a greater than or equal to 3% oxygen desaturation from pre-event baseline. RESPIRATORY DATA: The study started at 21:51:35 and ended at 03:58:54 and the total recording time was 367 minutes. By convention, sleep is assumed for the whole recording. Snoring was noted. There was a total of 51 respiratory events. Of these events, the total number of apneas was 0 and 51 hypopneas. The central apnea index (ROSSI) was 0.0. The respiratory event index (SHEY) was 8.3 events per hour of study time. The mean oxygen saturation during the study was 95.0%, with a minimum oxygen saturation of 87.0%. The patient spent 2.3 minutes at oxygen saturation measured less than 90% (0.6% of recording time) and 0.5 minutes at oxygen saturation measured at or less than 88% (0.1% of recording time). Time SHEY / AHI Supine 336.5 min 7.8 Off-Supine 31.0 min 13.5 Total 367.5 min 8.3 ECG DATA: The average heart rate was 68 bpm with a range of 54 bpm to 102 bpm. ICSD DIAGNOSIS: Obstructive Sleep Apnea Syndrome [G47.33] IMPRESSION / RECOMMENDATIONS: 1. This study confirms a diagnosis of at least mild obstructive sleep apnea exacerbated in off-supine sleep. 2. The results of this study may represent an underestimation of the degree of obstructive sleep apnea, especially hypopneas, because of the known limitations of HSAT, such as inability to record arousals because EEG is not recorded. 3. Treatment of mild sleep apnea can include weight loss, positional therapy, treatment of allergies, oral appliance therapy or ENT evaluation of any airway abnormalities. PAP therapy may be considered in patients with documented symptoms of daytime sleepiness, impaired cognition, mood disorder, insomnia, or documented hypertension, ischemic heart disease, or history of stroke. 4. The patient endorses a short habitual sleep duration of 6 hours. Increase sleep time to 7-8 hours. INTERPRETING PHYSICIAN: PHYSICIAN I attest that I have performed epoch by epoch review of the entire raw data and find this study to be technically adequate. Hollie Marroqiun M.D. Report Digitally Signed By: KENNY MARROQUIN M.D. (04/12/2024 6:01:16 AM) Normal [facility] CBC W Auto Differential pane l (Bld)on 03-14-2024 Basophils (Bld) [#/Vol] 10*3/uL Normal <0.11 [facility] Comment on above: Order Comment: Speci men Type: BLOOD SPECIMENOrdering Facility: [facility] Address: [address] [place] [address] Performed By: #### 5 7021-8 ####[facility] LABCLIA [id number] [place] [address] [place] Basophils/100 WBC (Bld) 0.3 % Normal [facility] Comment on above: Order Comment: Speci men Type: BLOOD SPECIMENOrdering Facility: [facility] Address: [address] [place] [address] Performed By: #### 5 7021-8 ####[facility] LABCLIA [id number] [place] [address] [place] Differential cell count method Nom (Bld) Auto Normal [facility] Comment on above: Order Comment: Speci men Type: BLOOD SPECIMENOrdering Facility: [facility] Address: [address] [place] [address] Performed By: #### 5 7021-8 ####[facility] LABIA [id number] [place] [address] [place] Eosinophils (Bld) [#/Vol] 0.07 10*3/uL Normal <0.46 [facility] Comment on above: Order Comment: Speci men Type: BLOOD SPECIMENOrdering Facility: [facility] Address: [address] [place] [address] Performed By: #### 5 7021-8 ####[facility] LABIA [id number] [place] [address] [place] Eosinophils/100 WBC (Bld) 1.1 % Normal [facility] Comment on above: Order Comment: Speci men Type: BLOOD SPECIMENOrdering Facility: [facility] Address: [address] [place] [address] Performed By: #### 5 7021-8 ####[facility] LABIA [id number] [place] [address] [place] Erythrocyte distribution width (RBC) [Ratio] 13.1 % Normal 11.5-15.0 [facility] Comment on above: Order Comment: Speci men Type: BLOOD SPECIMENOrdering Facility: [facility] Address: [address] [place] [address] Performed By: #### 5 7021-8 ####[facility] LABIA [id number] [place] [address] [place] Hematocrit (Bld) [Volume fraction] 42.6 % Normal 39.0-51.0 [facility] Comment on above: Order Comment: Speci men Type: BLOOD SPECIMENOrdering Facility: [facility] Address: [address] [place] [address] Performed By: #### 5 7021-8 ####[facility] LABCLIA [id number] [place] [address] [place] Hemoglobin (Bld) [Mass/Vol] 13.9 g/dL Normal 13.0-17.0 [facility] Comment on above: Order Comment: Speci men Type: BLOOD SPECIMENOrdering Facility: [facility] Address: [address] [place] [address] Performed By: #### 5 7021-8 ####[facility] LABCLIA [id number] [place] [address] [place] Immature granulocytes (Bld) [#/Vol] 10*3/uL Normal <0.10 [facility] Comment on above: Order Comment: Speci men Type: BLOOD SPECIMENOrdering Facility: [facility] Address: [address] [place] [address] Performed By: #### 5 7021-8 ####[facility] LABCLIA [id number] [place] [address] [place] Immature granulocytes/100 WBC (Bld) 0.3 % Normal [facility] Comment on above: Order Comment: Speci men Type: BLOOD SPECIMENOrdering Facility: [facility] Address: [address] [place] [address] Performed By: #### 5 7021-8 ####[facility] LABIA [id number] [place] [address] [place] Lymphocytes (Bld) [#/Vol] 1.51 10*3/uL Normal 1.00-4.00 [facility] [place] Comment on above: Order Comment: Speci men Type: BLOOD SPECIMENOrdering Facility: [facility] Address: [address] [place] [address] Performed By: #### 5 7021-8 ####[facility] LABCLIA [id number] [place] [address] [place] Lymphocytes/100 WBC (Bld) 22.9 % Normal [facility] [place] Comment on above: Order Comment: Speci men Type: BLOOD SPECIMENOrdering Facility: [facility] Address: [address] [place] [address] Performed By: #### 5 7021-8 ####[facility] LABIA [id number] [place] [address] [place] MCH (RBC) [Entitic mass] 28.6 pg Normal 26.0-34.0 [facility] [place] Comment on above: Order Comment: Speci men Type: BLOOD SPECIMENOrdering Facility: [facility] Address: [address] [place] [address] Performed By: #### 5 7021-8 ####[facility] LABIA [id number] [place] [address] [place] MCHC (RBC) [Mass/Vol] 32.6 g/dL Normal 30.5-36.0 [facility] [place] Comment on above: Order Comment: Speci men Type: BLOOD SPECIMENOrdering Facility: [facility] Address: [address] [place] [address] Performed By: #### 5 7021-8 ####[facility] LABIA [id number] [place] [address] [place] MCV (RBC) [Entitic vol] 87.7 fL Normal 80.0-100.0 [facility] [place] Comment on above: Order Comment: Speci men Type: BLOOD SPECIMENOrdering Facility: [facility] Address: [address] [place] [address] Performed By: #### 5 7021-8 ####[facility] LABIA [id number] [place] [address] [place] Monocytes (Bld) [#/Vol] 0.48 10*3/uL Normal <0.87 [facility] [place] Comment on above: Order Comment: Speci men Type: BLOOD SPECIMENOrdering Facility: [facility] Address: [address] [place] [address] Performed By: #### 5 7021-8 ####[facility] LABCLIA [id number] [place] [address] [place] Monocytes/100 WBC (Bld) 7.3 % Normal [facility] [place] Comment on above: Order Comment: Speci men Type: BLOOD SPECIMENOrdering Facility: [facility] Address: [address] [place] [address] Performed By: #### 5 7021-8 ####[facility] LABCLIA [id number] [place] [address] [place] Neutrophils (Bld) [#/Vol] 4.48 10*3/uL Normal 1.45-7.50 [facility] [place] Comment on above: Order Comment: Speci men Type: BLOOD SPECIMENOrdering Facility: [facility] Address: [address] [place] [address] Performed By: #### 5 7021-8 ####[facility] LABCLIA [id number] [place] [address] [place] Neutrophils/100 WBC (Bld) 68.1 % Normal [facility] [place] Comment on above: Order Comment: Speci men Type: BLOOD SPECIMENOrdering Facility: [facility] Address: [address] [place] [address] Performed By: #### 5 7021-8 ####[facility] LABCLIA [id number] [place] [address] [place] Nucleated RBC (Bld) [#/Vol] 10*3/uL Normal <0.01 [facility] [place] Comment on above: Order Comment: Speci men Type: BLOOD SPECIMENOrdering Facility: [facility] Address: [address] [place] [address] Performed By: #### 5 7021-8 ####[facility] LABCLIA [id number] [place] [address] [place] Nucleated RBC/100 WBC (Bld) [Ratio] 0.0 /100 WBC Normal [facility] [place] Comment on above: Order Comment: Speci men Type: BLOOD SPECIMENOrdering Facility: [facility] Address: [address] [place] [address] Performed By: #### 5 7021-8 ####[facility] LABCLIA [id number] [place] [address] [place] Platelet mean volume (Bld) [Entitic vol] 11.5 fL Normal 9.0-12.7 [facility] [place] Comment on above: Order Comment: Speci men Type: BLOOD SPECIMENOrdering Facility: [facility] Address: [address] [place] [address] Performed By: #### 5 7021-8 ####[facility] LABCLIA [id number] [place] [address] [place] Platelets (Bld) [#/Vol] 232 10*3/uL Normal 150-400 [facility] [place] Comment on above: Order Comment: Speci men Type: BLOOD SPECIMENOrdering Facility: [facility] Address: [address] [place] [address] Performed By: #### 5 7021-8 ####[facility] LABIA [id number] [place] [address] [place] RBC (Bld) [#/Vol] 4.86 10*6/uL Normal 4.20-6.00 [facility] Comment on above: Order Comment: Speci men Type: BLOOD SPECIMENOrdering Facility: [facility] Address: [address] [place] [address] Performed By: #### 5 7021-8 ####[facility] LABCLIA [id number] [place] [address] [place] WBC (Bld) [#/Vol] 6.58 10*3/uL Normal 3.70-11.00 [facility] Comment on above: Order Comment: Speci men Type: BLOOD SPECIMENOrdering Facility: [facility] Address: [address] [place] [address] Performed By: #### 5 7021-8 ####[facility] LABIA [id number] [place] [address] [place] Comprehensive metabolic 2000 panelon 03-14-2024 Albumin [Mass/Vol] 4.4 g/dL Normal 3.9-4.9 [facility] Comment on above: Order Comment: Speci men Type: BLOOD SPECIMENOrdering Facility: [facility] Address: [address] [place] [address] Performed By: #### 2 4323-8, 32539-3, 22781-9, 3024-7 ####[facility] LABIA [id number] [place] [address] [place] ALP [Catalytic activity/Vol] 47 U/L Normal 38-113 [facility] [place] Comment on above: Order Comment: Speci men Type: BLOOD SPECIMENOrdering Facility: [facility] Address: [address] [place] [address] Performed By: #### 2 4323-8, 94440-3, 73879-0, 3024-7 ####[facility] [id number] [place] [address] [place] ALT [Catalytic activity/Vol] 31 U/L Normal 10-54 [facility] [place] Comment on above: Order Comment: Speci men Type: BLOOD SPECIMENOrdering Facility: [facility] Address: [address] [place] [address] Performed By: #### 2 4323-8, 52107-7, 39694-9, 3024-7 ####[facility] LABIA [id number] [place] [address] [place] Anion gap [Moles/Vol] 12 mmol/L Normal 8-15 [facility] [place] Comment on above: Order Comment: Speci men Type: BLOOD SPECIMENOrdering Facility: [facility] Address: [address] [place] [address] Performed By: #### 2 4323-8, 58015-3, 49768-7, 3024-7 ####[facility] LABCLIA [id number] [place] [address] [place] AST [Catalytic activity/Vol] 33 U/L Normal 14-40 [facility] [place] Comment on above: Order Comment: Speci men Type: BLOOD SPECIMENOrdering Facility: [facility] Address: [address] [place] [address] Performed By: #### 2 4323-8, 67293-9, 45439-2, 3024-7 ####[facility] LABCLIA [id number] [place] [address] [place] Bilirubin [Mass/Vol] 0.6 mg/dL Normal 0.2-1.3 [facility] Comment on above: Order Comment: Speci men Type: BLOOD SPECIMENOrdering Facility: [facility] Address: [address] [place] [address] Performed By: #### 2 4323-8, 39454-5, 13952-6, 3024-7 ####[facility] LABCLIA [id number] [place] [address] [place] Calcium [Mass/Vol] 9.1 mg/dL Normal 8.5-10.2 [facility] Comment on above: Order Comment: Speci men Type: BLOOD SPECIMENOrdering Facility: [facility] Address: [address] [place] [address] Performed By: #### 2 4323-8, 72112-2, 34021-5, 3024-7 ####[facility] LABCLIA [id number] [place] [address] [place] Chloride [Moles/Vol] 107 mmol/L Normal 98-107 [facility] Comment on above: Order Comment: Speci men Type: BLOOD SPECIMENOrdering Facility: [facility] Address: [address] [place], [place] [address] Performed By: #### 2 4323-8, 80665-0, 92051-4, 3024-7 ####[facility] LABIA [id number] [place] [id number] [place] CO2 [Moles/Vol] 21 mmol/L Low 22-30 [facility] [place] Comment on above: Order Comment: Speci men Type: BLOOD SPECIMENOrdering Facility: [facility] Address: [address] [place] [address] Performed By: #### 2 4323-8, 44061-4, 45765-9, 3024-7 ####[facility] [id number] [place] [address] [place] Creatinine [Mass/Vol] 1.02 mg/dL Normal 0.73-1.22 [facility] [place] Comment on above: Order Comment: Speci men Type: BLOOD SPECIMENOrdering Facility: [facility] Address: [address] [place] [address] Performed By: #### 2 4323-8, 83653-0, 56151-5, 3024-7 ####[facility] [id number] [place] [address] [place] Creatinine and Glomerular filtration rate.predicted panel (S/P/Bld) 101 mL/min/1.73m??? Normal >=60 [facility] [place] Comment on above: Order Comment: Speci men Type: BLOOD SPECIMENOrdering Facility: [facility] Address: [address] [place] [address] Result Comment: Whit mated Glomerular Filtration Rate (eGFR) is calculated using the 2020 CKD-EPI creatinine equation. This equation utilizes serum creatinine, sex, and age as parameters. The creatinine assay has traceable calibration to isotope dilution-mass spectrometry. Refer to KDIGO guidelines for clinical interpretation. In patients with unstable renal function, e.g. those with acute kidney injury, the eGFR may not accurately reflect actual GFR. Performed By: #### 2 4323-8, 63552-6, 42487-7, 3024-7 ####[facility] LABCLIA [id number] [address] [address] [place] Glucose [Mass/Vol] 86 mg/dL Normal 74-99 [facility] Comment on above: Order Comment: Speci men Type: BLOOD SPECIMENOrdering Facility: [facility] Address: [address] [place] [address] Result Comment: The [place] Diabetes Association (ADA) provides guidance for cutoff values for fasting glucose and random glucose. The ADA defines fasting as no caloric intake for at least 8 hours. Fasting plasma glucose results between 100 to 125 mg/dL indicate increased risk for diabetes (prediabetes). Fasting plasma glucose results greater than or equal to 126 mg/dL meet the criteria for diagnosis of diabetes. In the absence of unequivocal hyperglycemia, results should be confirmed by repeat testing. In a patient with classic symptoms of hyperglycemia or hyperglycemic crisis, random plasma glucose results greater than or equal to 200 mg/dL meet the criteria for diagnosis of diabetes. Reference: Standards of Medical Care in Diabetes 2016, [place] Diabetes Association. Diabetes Care. 2016.39(Suppl 1). Performed By: #### 2 4323-8, 76533-8, 15002-5, 3024-7 ####[facility] LABCLIA [id number] [place] [address] [place] Potassium [Moles/Vol] 4.3 mmol/L Normal 3.7-5.1 [facility] [place] Comment on above: Order Comment: Speci men Type: BLOOD SPECIMENOrdering Facility: [facility] Address: [address] [place] [address] Performed By: #### 2 4323-8, 97112-7, 36860-8, 3024-7 ####[facility] LABCLIA [id number] [place] [address] [place] Protein [Mass/Vol] 6.8 g/dL Normal 6.3-8.0 [facility] Comment on above: Order Comment: Speci men Type: BLOOD SPECIMENOrdering Facility: [facility] Address: [address] [place] [address] Performed By: #### 2 4323-8, 71668-5, 23138-4, 3024-7 ####[facility] LABCLIA [id number] [address] [address] [place] Sodium [Moles/Vol] 140 mmol/L Normal 136-144 [facility] Comment on above: Order Comment: Speci men Type: BLOOD SPECIMENOrdering Facility: [facility] Address: [address] [place] [address] Performed By: #### 2 4323-8, 97891-1, 23631-8, 3024-7 ####[facility] LABCLIA [id number] [address] [address] [place] Urea nitrogen [Mass/Vol] 15 mg/dL Normal 9-24 [facility] [place] Comment on above: Order Comment: Speci men Type: BLOOD SPECIMENOrdering Facility: [facility] Address: [address] [place] [address] Performed By: #### 2 4323-8, 79228-7, 73023-9, 3024-7 ####[facility] LABCLIA [id number] [address] [address] [place] Ferritin SerPl-mCncon 2023 Ferritin [Mass/Vol] 233.0 ng/mL Normal 30.3-565.7 [facility] Comment on above: Order Comment: Speci men Type: BLOOD SPECIMENOrdering Facility: [facility] Address: [address] [place] [address] Performed By: #### 2 986-8, 3016-3, 2276-4 ####[facility] LABCLIA [id number] [address] [address] [place] HbA1c (Bld)on 03-14-2024 Average glucose Estimated from glycated hemoglobin (Bld) [Mass/Vol] 114 mg/dL Normal [facility] [place] Comment on above: Order Comment: Speci men Type: BLOOD SPECIMENOrdering Facility: [facility] Address: [address] [place] [address] Result Comment: eAG: (Estimated average glucose) is a calculated value from HgbA1c and is insurance follow up representative of the average blood glucose level in the last 2-3 month period. Performed By: #### 5 5454-3 ####[facility] LABCLIA [id number] [place] [address] [place] HbA1c (Bld) [Mass fraction] 5.6 % Normal 4.3-5.6 [facility] [place] Comment on above: Order Comment: Speci men Type: BLOOD SPECIMENOrdering Facility: [facility] Address: [address] [place] [address] Result Comment: [place] Diabetes Association guidelines indicate that patients with HgbA1c in the range 5.7-6.4% are at increased risk for development of diabetes, and intervention by lifestyle modification may be beneficial. HgbA1c greater or equal to 6.5% is considered diagnostic of diabetes. Performed By: #### 5 5454-3 ####[facility] LABCLIA [id number] [place] [address] [place] Iron and Iron binding capaci ty panelon 03-14-2024 Iron [Mass/Vol] 119 ug/dL Normal 41-186 [facility] [place] Comment on above: Order Comment: Speci men Type: BLOOD SPECIMENOrdering Facility: [facility] Address: [address] [place] [address] Performed By: #### 2 4323-8, 31163-8, 13805-7, 3024-7 ####[facility] LABCLIA [id number] [place] [address] [place] Iron binding capacity [Mass/Vol] 299 ug/dL Normal 232-386 [facility] [place] Comment on above: Order Comment: Speci men Type: BLOOD SPECIMENOrdering Facility: [facility] Address: [address] [place] [address] Performed By: #### 2 4323-8, 69734-1, 53342-1, 3024-7 ####[facility] LABCLIA [id number] [place] [id number] [place] Iron/TIBC [Molar ratio] 39.8 % Normal 15.0-57.0 [facility] [place] Comment on above: Order Comment: Speci men Type: BLOOD SPECIMENOrdering Facility: [facility] Address: [address] [place] [address] Performed By: #### 2 4323-8, 05213-2, 15415-7, 3024-7 ####[facility] LABCLIA [id number] [place] [address] [place] Lipid 1996 panelon 4 Cholesterol [Mass/Vol] 196 mg/dL Normal <200 [facility] [place] Comment on above: Order Comment: Speci men Type: BLOOD SPECIMENOrdering Facility: [facility] Address: [address] [place] [address] Result Comment: <200 mg/dL, Desirable 200-239 mg/dL, Borderline high >239 mg/dL, High Performed By: #### 2 4323-8, 56023-7, 42490-6, 302-7 ####[facility] LABCLIA [id number] [place] [id number] [place] Cholesterol in HDL [Mass/Vol] 44 mg/dL Normal >39 [facility] [place] Comment on above: Order Comment: Speci men Type: BLOOD SPECIMENOrdering Facility: [facility] Address: [address] [place], [place] [address] Result Comment: 40-5 9 mg/dL, Acceptable >59 mg/dL, High: Negative risk factor for coronary heart disease <40 mg/dL, Low: Positive risk factor for coronary heart disease Performed By: #### 2 4323-8, 84724-0, 38577-5, 3024-7 ####[facility] LABCLIA [id number] [address] [address] [place] Cholesterol in LDL [Mass/Vol] 137 mg/dL High <100 [facility] [place] Comment on above: Order Comment: Clau zabala Type: BLOOD SPECIMENOrdering Facility: [facility] Address: [address] [place] [address] Result Comment: <100 mg/dL, Optimal 100-129 mg/dL, Near optimal/above optimal 130-159 mg/dL, Borderline high 160-189 mg/dL, High >189 mg/dL, Very high Secondary prevention optimal LDL Cholesterol levels are recommended to be < 70 mg/dL Performed By: #### 2 4323-8, 10687-6, 92595-9, 3024-7 ####[facility] LABCLIA [id number] [address] [place] Cholesterol in LDL/Cholesterol in HDL [Mass ratio] 3.11 {ratio} High <2.54 [facility] [place] Comment on above: Order Comment: Clau zabala Type: BLOOD SPECIMENOrdering Facility: [facility] Address: [address] [place] [address] Result Comment: Refe rence: 1. National Cholesterol Education Program ATP III Guideline At-A-Glance Quick Desk Reference: National Heart, Lung, and Blood [place]. National Institutes of Health. 2001: NIH Publication No. 01-3305. 2. An International Atherosclerosis Society position paper: global recommendations for the management of dyslipidemia: executive summary, Atherosclerosis. 2014: 232(2):410-413. Performed By: #### 2 4323-8, 62445-2, 09514-3, 3023-7 ####[facility] LABCLIA [id number] [place] [id number] [place] Cholesterol in VLDL [Mass/Vol] 15 mg/dL Normal <30 [facility] [place] Comment on above: Order Comment: Clau zabala Type: BLOOD SPECIMENOrdering Facility: [facility] Address: [address] [place] [address] Performed By: #### 2 4323-8, 77229-5, 57547-0, 3024-7 ####[facility] LABCLIA [id number] [address] [address] [place] Cholesterol non HDL [Mass/Vol] 152 mg/dL High <130 [facility] [place] Comment on above: Order Comment: Speci men Type: BLOOD SPECIMENOrdering Facility: [facility] Address: [address] [place] [address] Result Comment: <130 mg/dL, Optimal 130-159 mg/dL, Near optimal/above optimal 160-189 mg/dL, Borderline high 190-219 mg/dL, High >219 mg/dL, Very high Secondary prevention optimal non HDL Cholesterol levels are recommended to be <100 mg/dL Performed By: #### 2 4323-8, 26217-6, 99201-5, 3024-7 ####[facility] LABCLIA [id number] [place] [address] [place] Cholesterol.total/Ch olesterol in HDL [Mass ratio] 4.45 {ratio} Normal <5.10 [facility] [place] Comment on above: Order Comment: Speci men Type: BLOOD SPECIMENOrdering Facility: [facility] Address: [address] [place] [address] Performed By: #### 2 4323-8, 58749-4, 32644-2, 3023-7 ####[facility] LABCLIA [id number] [place] [id number] [place] FASTING TIME 12 hrs Normal [facility] Comment on above: Order Comment: Speci men Type: BLOOD SPECIMENOrdering Facility: [facility] Address: [address] [place] [address] Performed By: #### 2 4323-8, 89472-1, 85350-6, 3024-7 ####[facility] LABCLIA [id number] [place] [address] [place] Triglyceride [Mass/Vol] 77 mg/dL Normal <150 [facility] Comment on above: Order Comment: Speci men Type: BLOOD SPECIMENOrdering Facility: [facility] Address: [address] [place] [address] Result Comment: <150 mg/dL, Normal 150-199 mg/dL, Borderline high 200-499 mg/dL, High >499 mg/dL, Very high Performed By: #### 2 4323-8, 32919-7, 14527-0, 3024-7 ####[facility] LABCLIA [id number] [place] [address] [place] T4 Free SerPl-mCncon 024 Free T4 [Mass/Vol] 1.2 ng/dL Normal 0.9-1.7 [facility] Comment on above: Order Comment: Speci men Type: BLOOD SPECIMENOrdering Facility: [facility] Address: [address] [place] [address] Performed By: #### 2 4323-8, 67358-7, 99906-4, 3024-7 ####[facility] LABCLIA [id number] [place] [address] [place] TSH SerPl-aCncon 03-14-2024 TSH Qn 1.270 m[IU]/L Normal 0.270-4.200 [facility] Comment on above: Order Comment: Speci men Type: BLOOD SPECIMENOrdering Facility: [facility] Address: [address] [place] [address] Performed By: #### 2 986-8, 3016-3, 2276-4 ####[facility] LABCLIA [id number] [place] [address] [place] Testost SerPl-mCncon 024 Testosterone [Mass/Vol] 439 ng/dL Normal 193-824 [facility] Comment on above: Order Comment: Speci men Type: BLOOD SPECIMENOrdering Facility: [facility] Address: [address] [place] [address] Result Comment: A te stosterone level in the 193-320 ng/dL range with associated clinical symptoms is considered low and may indicate hypogonadism (from NEJM 2010 363:123-135). Results >320 ng/dL are considered normal. Performed By: #### 2 986-8, 3016-3, 2276-4 ####[facility] LABCLIA [id number] [id number] [id number] [place] CNOVon 03-10-2024 CNOV Office Visit (FAMPWS ) ASA MATAMOROS ([id number]) 1995 M Date Time Provider Department 03/10/24 3:40 PM JOSSELIN GARIBAY [facility] During your visit today, we recorded the following information about you: Pulse Respiration Blood pressure Weight 102/minute 16/minute 124/90 124.3 kg Josselin Gariaby, EITAN.SCOUT LEASER 03/10/2024 5:30 PM Signed This is a 28 year old male who presents today with: Patient presents with: ER F/U: [facility] ER 03/01/24 dx: chest pain HISTORY OF PRESENT ILLNESS: Asa Matamoros is a 28 year old male. Patient presents with: ER F/U: [facility] ER 03/01/24 dx: chest pain Pt presents today for ER follow-up. He went to [facility] on 03/01/2020 fourth with complaints of chest heaviness, tingling down the left arm, mild dyspnea, headache, and racing heart. Refers that he was having pain in the shoulder/chest. Refers felt like someone was ripping his heart out. In the emergency room, he had EKG which showed nonspecific T wave inversion. Negative troponins. Negative D-dimer. CT of the head was negative. ChestX-ray was negative. He was treated with fluids, Reglan, and Benadryl. Discharged with instructions to follow-up for additional testing. He does have a family history of cardiac disease. Patient personally has a history of sleep apnea that is currently not treated. He smokes occasional cigars. Refers the chest pain is improved. He will occasionally gets some musculoskeletal pain in the left shoulder. Reports + fatigue. History of sleep apnea. He was treated with CPAP for approximately 2 years. He reports that he lost weight and no longer needed it. But he is not since gained weight. He does also endorse restless legs. He also reports increased thirst. PAST MEDICAL HISTORY: PAST MEDICAL HISTORY No date: Concussion No date: Undiagnosed cardiac murmurs PAST SURGICAL HISTORY No date: CIRCUMCISION W/CLAMP/OTH DEV W/BLOCK Comment: Circumcision, ALLERGIES Amoxcillin [Amoxicillin] MEDICATIONS Current Outpatient Medications Medication Sig albuterol HFA (PROVENTIL HFA, VENTOLIN HFA) 90 mcg/actuation inhaler Inhale 2 Puffs as instructed every 4 hours as needed for wheezing/shortness of breath. (Patient not taking: Reported on 02/11/2024) benzonatate (TESSALON PERLES) 100 mg capsule Take 1 capsule by mouth three times a day as needed. (Patient not taking: Reported on 02/11/2024) multivitamin tablet Take 1 tablet by mouth once daily. acetaminophen 325 mg-caffeine 40 mg-butalbital 50 mg (FIORICET) per tablet Take 1 tablet by mouth every 4 hours as needed. (Patient not taking: Reported on 10/21/2023) No current facility-administered medications for this visit. FAMILY HISTORY Problem Relation Age of Onset Heart Father AORTIC VALVE Diabetes Paternal Grandfather Breast Cancer Maternal Grandmother Asthma Maternal Grandfather Coronary Artery Disease Maternal Uncle Coronary Artery Disease Maternal Grandfather ME with cardiac arrest age 66 other (migraine [Other]) Mother other (migraine [Other]) Paternal Aunt other (parkinson's disease [Other]) Paternal Grandfather Social History Tobacco Use Smoking status: Some Days Types: Cigars Smokeless tobacco: Former Types: Chew Substance Use Topics Alcohol use: No Drug use: No EXAM: BP 124/90 Pulse 102 Resp 16 Wt 124.3 kg (274 lb) SpO2 96% BMI 37.94 kg/m? PHYSICAL EXAM: General Appearance: Well appearing, alert, in no acute distress, well-hydrated, well nourished.. Skin: Skin color, texture, turgor normal, no suspicious rashes or lesions. Head: Normocephalic, no masses, lesions, tenderness or abnormalities. Eyes: Anicteric sclera. Pupils are equally round and reactive to light. Extraocular movements are intact. . Ears: External ears normal, canals clear. Normal TMs bilaterally. Oropharynx: Lips, mucosa, and tongue normal, teeth and gums normal, oropharynx normal. Neck: Supple, no adenopathy; thyroid symmetric, normal size, no bruits. Lungs: Lungs clear to auscultation. No wheezing, rhonchi, rales.. Heart: RRR without murmur, gallop, or rubs. No ectopy. Abdomen: Abdomen soft, non-tender. Bowel sounds normal. No masses, organomegaly. Extremities: No deformities, edema, skin discoloration, clubbing or cyanosis. Good capillary refill. . Neurologic: Gait normal. ASSESSMENT/PLAN: 1. Chest discomfort - ICD9: 786.59, ICD10: R07.89 (primary diagnosis) Chest pain of unclear etiology, patient with significant risk factor(s) of family history of early coronary heart disease and RAKESH and obesity. EKG - NSR with possible left atrial enlargement. No ST changes or ectopy. With personal hx and family hx, will proceed w/ stress testing. - LIPID PANEL BASIC - STRESS ECHO TREADMILL - ECG COMPLETE 2. RAKESH (obstructive sleep apnea) - ICD9: 327.23, ICD10: G47.33 Get sleep study to eval if reoccurre (more content not included)... Normal [facility] ECG COMPLETEon 03-10-2024 ECG COMPLETE Ventricular Rate : 7 8 BPM Atrial Rate : 78 BPM P-R Interval : 182 ms QRS Duration : 92 ms Q-T Interval : 358 ms QTC Calculation(Bazett) : 408 ms Calculated P [place] : 34 degrees Calculated R [place] : 50 degrees Calculated T [place] : 19 degrees NORMAL SINUS RHYTHM POSSIBLE LEFT ATRIAL ENLARGEMENT BORDERLINE ECG Confirmed by MD CAMEJO QARAB ([id number]) on 03/11/2024 4:10:16 PM NAME : ASA MATAMOROS PID : [id number] : 1995 Gender : Male Race : ORD : [id number] Procedure Date : Mar 10 2024 17:03:07 Edit Date : Mar 11 2024 16:10:22 Diagnosis: NORMAL SINUS RHYTHM POSSIBLE LEFT ATRIAL ENLARGEMENT BORDERLINE ECG Confirmed by MD CAMEJO QARAB ([id number]) on 03/11/2024 4:10:16 PM Test Reason : R07.89 Other chest pain Location : 185 : WO Overread By : MD CAMEJO QARAB Edited By : MD CAMEJO QARAB Referred By : JOSSELIN GARIBAY Acquired by : Shefali GROVER Normal [facility] CNOVon 02-11-2024 CNOV Office Visit ([facility] ) ASA MATAMOROS ([id number]) 1995 M Date Time Provider Department 02/11/24 11:00 AM CHIDI MARTEL [facility] During your visit today, we recorded the following information about you: Temperature Pulse Respiration Blood pressure 97.6 degrees 90/minute 18/minute 114/78 Weight 127 kg Chidi Martel APRN.CNP 02/11/2024 11:24 AM Signed Subjective HPI HPI Asa Matamoros is a 28 year old male who presents today for of [facility]. This started 3 days ago. Has tried otc medication for relief. Symptoms are worsened by nothing. Risk factors sick exposures at home. nonsmoker. .Patient presents with: Sore Throat: Nasal drainage x 3 days PAST MEDICAL HISTORY No date: Concussion No date: Undiagnosed cardiac murmurs PAST SURGICAL HISTORY No date: CIRCUMCISION W/CLAMP/OTH DEV W/BLOCK Comment: Circumcision, ALLERGIES Amoxcillin [Amoxicillin] MEDICATIONS multivitamin tablet Take 1 tablet by mouth once daily. albuterol HFA (PROVENTIL HFA, VENTOLIN HFA) 90 mcg/actuation inhaler Inhale 2 Puffs as instructed every 4 hours as needed for wheezing/shortness of breath. (Patient not taking: Reported on 02/11/2024) benzonatate (TESSALON PERLES) 100 mg capsule Take 1 capsule by mouth three times a day as needed. (Patient not taking: Reported on 02/11/2024) acetaminophen 325 mg-caffeine 40 mg-butalbital 50 mg (FIORICET) per tablet Take 1 tablet by mouth every 4 hours as needed. (Patient not taking: Reported on 10/21/2023) FAMILY HISTORY Problem Relation Age of Onset Heart Father AORTIC VALVE Diabetes Paternal Grandfather Breast Cancer Maternal Grandmother Asthma Maternal Grandfather Coronary Artery Disease Maternal Uncle Coronary Artery Disease Maternal Grandfather ME with cardiac arrest age 66 other (migraine [Other]) Mother other (migraine [Other]) Paternal Aunt other (parkinson's disease [Other]) Paternal Grandfather Social History Tobacco Use Smoking status: Some Days Types: Cigars Smokeless tobacco: Former Types: Chew Substance Use Topics Alcohol use: No Drug use: No Review of Systems Constitutional: Negative for fever. HENT: Positive for congestion and sore throat. Negative for ear pain and nosebleeds. Respiratory: Negative for cough, shortness of breath and wheezing. Musculoskeletal: Negative for neck pain. Skin: Negative for itching and rash. Objective Blood pressure 114/78, pulse 90, temperature 36.4 ?C (97.6 ?F), resp. rate 18, weight 127 kg (279 lb 15.8 oz), SpO2 98%. Physical Exam Constitutional: General: He is not in acute distress. Appearance: He is not toxic-appearing or diaphoretic. HENT: Head: Normocephalic and atraumatic. Mouth/Throat: Lips: [place]. Mouth: Mucous membranes are moist. Pharynx: Uvula midline. Posterior oropharyngeal erythema present. Tonsils: No tonsillar exudate. Cardiovascular: Rate and Rhythm: Normal rate and regular rhythm. Heart sounds: Normal heart sounds, S1 normal and S2 normal. Pulmonary: Effort: Pulmonary effort is normal. Breath sounds: Normal breath sounds. Lymphadenopathy: Cervical: No cervical adenopathy. Right cervical: No superficial cervical adenopathy. Left cervical: No superficial cervical adenopathy. Neurological: Mental Status: He is alert and oriented to person, place, and time. Gait: Gait is intact. ASSESSMENT/PLAN: 1. Sore throat - ICD9: 462, ICD10: J02.9 - suspect viral - Group A strep molecular testing negative - Discussed supportive care treatment with fluids, rest and analgesia. - The patient should follow up in 3-5 days if symptoms persist or worsen - STREP A MOLECULAR (POC) Chidi Martel APRN.SCOUT LEASER Allergies As of Date: 02/11/2024 Noted Allergy Reaction AMOXCILLIN (AMOXICILLIN) 01/11/2011 2 - Rash Date Reviewed: 02/11/2024 Reviewed by: Lilibeth Almanza LPN - Fully Assessed Reason for Visit: Sore Throat [200] Cmt: Nasal drainage x 3 days Primary Visit Diagnosis:Sore throat [J02.9] Order(s):STREP A MOLECULAR (POC) [[id number]] Order #: [id number] #:[id number] predniSONE (DELTASONE) 20 mg tabletTake 2 tablets by mouth once daily for 5 days.Disp: 10 tabletRfl: 0 Prescriptions as of 02/11/2024 - predniSONE (DELTASONE) 20 mg tablet Take 2 tablets by mouth once daily for 5 days. - albuterol HFA (PROVENTIL HFA, VENTOLIN HFA) 90 mcg/actuation inhaler Inhale 2 Puffs as instructed every 4 hours as needed for wheezing/shortness of breath. - benzonatate (TESSALON PERLES) 100 mg capsule Take 1 capsule by mouth three times a day as needed. - multivitamin tablet Take 1 tablet by mouth once daily. - acetaminophen 325 mg-caffeine 40 mg-butalbital 50 mg (FIORICET) per tablet Take 1 tablet by mouth every 4 hours as needed. Meds Comments as of 03/16/2019: 03/16/19: only takes a multivitamin as a daily medication. Jen Downing, (more content not included)... Normal [facility] STREP A MOLECULAR (POC)on Procedural Control Valid [facility] Strep A (POCT) Negative Negative [facility] CNOVon 10-21-2023 CNOV Office Visit ([facility] ) ASA MATAMOROS ([id number]) 1995 M Date Time Provider Department 10/21/23 10:15 AM AMANDA NELSON [facility] During your visit today, we recorded the following information about you: Temperature Pulse Respiration Blood pressure 97.6 degrees 108/minute 16/minute 118/82 Weight 125.7 kg Amanda Nelson PA 10/22/2023 2:31 PM Signed This note was created using T-ZONE. Subjective Asa Matamoros is a 28 year old male. HPI 28-year-old male presents for cough, congestion x 2 weeks. Patient states 2 weeks ago he started getting a cough. He states it is mainly a dry cough. He also has nasal congestion and drainage. He states that 3 days ago he started getting body aches, chills and feeling feverish. He did not actually take his temperature. No vomiting or diarrhea. No sick contacts that he is aware of. No history of COPD or asthma. He smokes a cigar occasionally, but not daily. No chest pain or shortness of breath. He has been taking DayQuil and NyQuil without improvement. no other complaint. PAST MEDICAL HISTORY Diagnosis Date Concussion Undiagnosed cardiac murmurs PAST SURGICAL HISTORY Procedure Laterality Date CIRCUMCISION W/CLAMP/OTH DEV W/BLOCK Circumcision, ALLERGIES Amoxcillin [Amoxicillin] MEDICATIONS multivitamin tablet Take 1 tablet by mouth once daily. acetaminophen 325 mg-caffeine 40 mg-butalbital 50 mg (FIORICET) per tablet Take 1 tablet by mouth every 4 hours as needed. (Patient not taking: Reported on 10/21/2023) FAMILY HISTORY Problem Relation Age of Onset Heart Father AORTIC VALVE Diabetes Paternal Grandfather Breast Cancer Maternal Grandmother Asthma Maternal Grandfather Coronary Artery Disease Maternal Uncle Coronary Artery Disease Maternal Grandfather ME with cardiac arrest age 66 other (migraine [Other]) Mother other (migraine [Other]) Paternal Aunt other (parkinson's disease [Other]) Paternal Grandfather Social History Tobacco Use Smoking status: Some Days Types: Cigars Smokeless tobacco: Former Types: Chew Substance Use Topics Alcohol use: No Drug use: No Review of Systems Constitutional: Positive for chills and fever (tactile). HENT: Positive for congestion and sinus pressure. Negative for sore throat. Respiratory: Positive for cough. Negative for shortness of breath. Gastrointestinal: Negative for diarrhea and vomiting. Objective BP 118/82 Pulse 108 Temp 36.4 ?C (97.6 ?F) (Tympanic) Resp 16 Wt 125.7 kg (277 lb 1.9 oz) SpO2 98% BMI 38.37 kg/m? Physical Exam Vitals and nursing note reviewed. Constitutional: General: He is not in acute distress. Appearance: Normal appearance. He is not toxic-appearing. HENT: Right Ear: Tympanic membrane and ear canal normal. Left Ear: Tympanic membrane and ear canal normal. Nose: Congestion present. Mouth/Throat: Mouth: Mucous membranes are moist. Eyes: Conjunctiva/sclera: Conjunctivae normal. Cardiovascular: Rate and Rhythm: Normal rate and regular rhythm. Pulmonary: Effort: Pulmonary effort is normal. Breath sounds: Wheezing (Mild wheezing with cough) present. No rhonchi or rales. Skin: General: Skin is warm and dry. Neurological: Mental Status: He is alert. Assessment and Plan ASSESSMENT/PLAN: 1. Sinobronchitis - ICD9: 473.9, 490, ICD10: J32.9, J40 (primary diagnosis) - Will begin treatment with Doxycycline -Rx for prednisone, tessalon Perles, albuterol inhaler - Supportive care with plenty of fluids, rest, and analgesia prn. 2. Acute cough - ICD9: 786.2, ICD10: R05.1 - XR CHEST 2V FRONTAL/LAT-no acute finding. -Will treat for sinobronchitis. See above. Diagnosis and treatment plan were discussed and questions were answered to the patient's satisfaction. Pt acknowledged understanding of concepts and follow up plan. Specific signs and symptoms that would indicate the need for higher level of care were discussed in detail warranting prompt ER evaluation. JESSICA Dove Allergies As of Date: 10/21/2023 Noted Allergy Reaction AMOXCILLIN (AMOXICILLIN) 01/11/2011 2 - Rash Date Reviewed: 10/21/2023 Reviewed by: Steff Colin LPN - Fully Assessed Reason for Visit: Cough [28] Cmt: Cough x 2 weeks and bodyaches and chills x 3 days Primary Visit Diagnosis:Sinobronchit is [J32.9, J40] Other Visit Diagnosis:Acute cough [R05.1] Order(s):XR CHEST 2V FRONTAL/LAT [[id number]] Order #: [id number] FUTURE predniSONE (DELTASONE) 20 mg tabletTake 2 tablets by mouth once daily for 4 days. Take daily with food.Disp: 8 tabletRfl: 0 albuterol HFA (PROVENTIL HFA, VENTOLIN HFA) 90 mcg/actuation inhalerInhale 2 Puffs as instructed every 4 hours as needed for wheezing/shortness of breath.Disp: 6.7 gRfl: 0 doxycycline (VIBRA-TABS) 100 mg tabletTake 1 tablet by mouth two times a day for 7 days.Disp: 14 tabletRfl: 0 benzon (more content not included)... Normal [facility] 10-21-2023 [facility] ASA MATAMOROS ([id number]) 1995 Date Time Provider Department 10/21/23 AMANDA NELSON [facility] During your visit today, we recorded the following information about you: Amanda Nelson PA 10/21/2023 12:32 PM Signed Please call patient and let him know chest x-ray was normal. No pneumonia. Take medication as prescribed at visit. Aubree Roberts MA 10/21/2023 2:33 PM Signed Patient given results and verbalized understanding of instructions given. Aubree Roberts MA Allergies As of Date: 10/21/2023 Noted Allergy Reaction AMOXCILLIN (AMOXICILLIN) 01/11/2011 2 - Rash Date Reviewed: 10/21/2023 Reviewed by: Steff Colin LPN - Fully Assessed Reason for Visit: Results [95] Prescriptions as of 10/21/2023 - predniSONE (DELTASONE) 20 mg tablet Take 2 tablets by mouth once daily for 4 days. Take daily with food. - albuterol HFA (PROVENTIL HFA, VENTOLIN HFA) 90 mcg/actuation inhaler Inhale 2 Puffs as instructed every 4 hours as needed for wheezing/shortness of breath. - doxycycline (VIBRA-TABS) 100 mg tablet Take 1 tablet by mouth two times a day for 7 days. - benzonatate (TESSALON PERLES) 100 mg capsule Take 1 capsule by mouth three times a day as needed. - multivitamin tablet Take 1 tablet by mouth once daily. - acetaminophen 325 mg-caffeine 40 mg-butalbital 50 mg (FIORICET) per tablet Take 1 tablet by mouth every 4 hours as needed. Meds Comments as of 03/16/2019: 03/16/19: only takes a multivitamin as a daily medication. Jen Downing RN Problem List As Of Date 10/21/2023 Noted Resolved Lumbago [M54.50] 02/23/2006 09/27/2017 Attention deficit disorder with hyperactivity(3*200509/27/2017 Postconcussion syndrome [F07.81] 01/11/2011 09/27/2017 White matter abnormality on MRI of brain [R90.8*02/19/2012 Iliotibial band syndrome of right side [M76.31] 06/30/2014 09/27/2017 Prehypertension [R03.0] 09/27/2017 Obesity, Class II, BMI 35-39.9 [E66.9] 09/27/2017 Obesity, Class III, BMI 40-49.9 (morbid obesity*10/21/2017 11/18/2017 Intractable chronic migraine without aura and w*11/18/2017 Chronic bilateral low back pain with bilateral *11/18/2017 Tension headache [G44.209] 05/04/2022 Encounter Status:Closed by AUBREE ROBERTS on 10/21/23 Normal [facility] XR CHEST 2V FRONTAL/LATon XR CHEST 2V FRONTAL/LAT * * *Final Report* * * DATE OF EXAM: Oct 21 2023 11:29AM WOX [id number] - XR CHEST 2V FRONTAL/LAT / PROCEDURE REASON: Acute cough * * * * Physician Interpretation * * * * EXAMINATION: CHEST RADIOGRAPH (2 VIEW FRONTAL and LATERAL) CLINICAL HISTORY: Acute cough MQ: XC2_6 EXAM DATE/TIME: 10/21/2023 11:29 AM COMPARISON: No relevant prior studies available. RESULT: Lines, tubes, and devices: None. Lungs and pleura: No consolidation. No lung mass. No pleural effusion. No pneumothorax. Cardiomediastinal silhouette: Normal cardiomediastinal silhouette. Bones and soft tissues: Unremarkable. IMPRESSION: No acute radiographic abnormality. School Vocational Educator: TYSHAWN Transcribe Date/Time: Oct 21 2023 12:26P Dictated by : NASREEN TORRES MD This examination was interpreted and the report reviewed and electronically signed by: NASREEN TORRES MD on Oct 21 2023 12:28PM EST [id number] Normal [facility] XR Chest PA and Lateralon IMPRESSION: No acute radiographic abnormality. School Vocational Educator: [facility] Transcribe Date/Time: Oct 21 2023 12:26P Dictated by : NASREEN TORRES MD This examination was interpreted and the report reviewed and electronically signed by: NASREEN TORRES MD on Oct 21 2023 12:28PM EST DIVISION OF RADIOLOGY * * *Final Report* * * DATE OF EXAM: Oct 21 2023 11:29AM WOX 5291 - XR CHEST 2V FRONTAL/LAT / PROCEDURE REASON: Acute cough * * * * Physician Interpretation * * * * EXAMINATION: CHEST RADIOGRAPH (2 VIEW FRONTAL & LATERAL) CLINICAL HISTORY: Acute cough MQ: XC2_6 EXAM DATE/TIME: 10/21/2023 11:29 AM COMPARISON: No relevant prior studies available. RESULT: Lines, tubes, and devices: None. Lungs and pleura: No consolidation. No lung mass. No pleural effusion. No pneumothorax. Cardiomediastinal silhouette: Normal cardiomediastinal silhouette. Bones and soft tissues: Unremarkable. DIVISION OF RADIOLOGY Provider, [facility] - 10/21/2023 * * *Final Report* * * DATE OF EXAM: Oct 21 2023 11:29AM WOX 5291 - XR CHEST 2V FRONTAL/LAT / PROCEDURE REASON: Acute cough * * * * Physician Interpretation * * * * EXAMINATION: CHEST RADIOGRAPH (2 VIEW FRONTAL & LATERAL) CLINICAL HISTORY: Acute cough MQ: XC2_6 EXAM DATE/TIME: 10/21/2023 11:29 AM COMPARISON: No relevant prior studies available. RESULT: Lines, tubes, and devices: None. Lungs and pleura: No consolidation. No lung mass. No pleural effusion. No pneumothorax. Cardiomediastinal silhouette: Normal cardiomediastinal silhouette. Bones and soft tissues: Unremarkable. IMPRESSION IMPRESSION: No acute radiographic abnormality. School Vocational Educator: TYSHAWN Transcribe Date/Time: Oct 21 2023 12:26P Dictated by : NASREEN TORRES MD This examination was interpreted and the report reviewed and electronically signed by: NASREEN TORRES MD on Oct 21 2023 12:28PM EST [facility] Radiology Study observation (narrative) [facility] XR Chest PA and LateralOrder ed By: [facility] Provider on 10-21-2023 [facility] CBC panel Auto (Bld)on 10-05 Erythrocyte distribution width (RBC) [Ratio] 13.2 % 11.5 - 15.0 % [facility] Hematocrit (Bld) [Volume fraction] 43.9 % 39.0 - 51.0 % [facility] Hemoglobin (Bld) [Mass/Vol] 14.4 g/dL 13.0 - 17.0 g/dL [facility] MCH (RBC) [Entitic mass] 28.0 pg 26.0 - 34.0 pg [facility] MCHC (RBC) [Mass/Vol] 32.8 g/dL 30.5 - 36.0 g/dL [facility] MCV (RBC) [Entitic vol] 85.2 fL 80.0 - 100.0 fL [facility] Nucleated RBC (Bld) [#/Vol] <0.01 k/uL [facility] Platelet mean volume (Bld) [Entitic vol] 11.3 fL 9.0 - 12.7 fL [facility] Platelets (Bld) [#/Vol] 243 10*3/uL 150 - 400 k/uL [facility] RBC (Bld) [#/Vol] 5.15 10*6/uL 4.20 - 6.0 0 m/uL [facility] WBC (Bld) [#/Vol] 7.12 10*3/uL 3.70 - 11. 00 k/uL [facility]ALTHon 04-11-2019 [facility] HNO ID: [id number] Author: Xochitl Delatorre (Tech) Service: Radiology Author Type: Publications Distribution Clerk Type: [facility] Filed: 04/11/2019 11:07 AM Note Text: Radiology Service Progress Note PATIENT NAME: Asa Matamoros DATE OF SERVICE: April 11, 2019 TIME: 11:06 AM PATIENT IDENTITY VERIFICATION COMPLETED USING TWO (2) METHODS: Name and Date of confirmed by patient verbally and Name and Date of confirmed by identification band. PATIENT GENDER DATA: Male PATIENT RELEVANT IMPLANT DATA REVIEWED: Yes RADIOLOGY DEPARTMENT: MR; Exam(s) Completed: Head: Routine Brain Seizure PERIPHERAL IV DATA: Not applicable SIGNED BY: Kavita Ruiz hydroelectric plant mechanical engineer April 11, 2019 11:06 AM [facility] Vital Signs Date Time Vital Sign Value Performing Clinician Sony flores 03-10-2024 15:36-0400 Body mass index (BMI) [Ratio] 37.94 kg/m2 Josselin Garibay FIELD TECHNICAL ASSISTANT.SCOUT LEASER Work Phone: [facility] 03-10-2024 15:36-0400 Body weight 124.29 kg Josselin Garibay FIELD TECHNICAL ASSISTANT.SCOUT LEASER Work Phone: [facility] 03-10-2024 15:36-0400 Diastolic blood pressure 90 mm[Hg] Josselin Garibay FIELD TECHNICAL ASSISTANT.SCOUT LEASER Work Phone: [facility] 03-10-2024 15:36-0400 Heart rate 102 /min Josselin Garibay FIELD TECHNICAL ASSISTANT.SCOUT LEASER Work Phone: [facility] 03-10-2024 15:36-0400 Respiratory rate 16 /min Josselin Garibay FIELD TECHNICAL ASSISTANT.SCOUT LEASER Work Phone: [facility] 03-10-2024 15:36-0400 SaO2% (BldA) [Mass fraction] 96 % Josselin Garibay FIELD TECHNICAL ASSISTANT.SCOUT LEASER Work Phone: [facility] 03-10-2024 15:36-0400 Systolic blood pressure 124 mm[Hg] Josselin Garibay FIELD TECHNICAL ASSISTANT.SCOUT LEASER Work Phone: [facility] 02-11-2024 11:04-0400 Body mass index (BMI) [Ratio] 38.77 kg/m2 Chidi Martel FIELD TECHNICAL ASSISTANT.SCOUT LEASER Work Phone: [facility] 02-11-2024 11:04-0400 Body temperature 97.59 [degF] Chidi Delonte FIELD TECHNICAL ASSISTANT.SCOUT LEASER Work Phone: [facility] 02-11-2024 11:04-0400 Body weight 127 kg Chidi Martel FIELD TECHNICAL ASSISTANT.SCOUT LEASER Work Phone: [facility] 02-11-2024 11:04-0400 Diastolic blood pressure 78 mm[Hg] Chidi Delonte FIELD TECHNICAL ASSISTANT.SCOUT LEASER Work Phone: [facility] 02-11-2024 11:04-0400 Heart rate 90 /min Chidi Delonte FIELD TECHNICAL ASSISTANT.SCOUT LEASER Work Phone: [facility] 02-11-2024 11:04-0400 Respiratory rate 18 /min Chidi King FIELD TECHNICAL ASSISTANT.SCOUT LEASER Work Phone: [facility] 02-11-2024 11:04-0400 SaO2% (BldA) [Mass fraction] 98 % Chidi King FIELD TECHNICAL ASSISTANT.SCOUT LEASER Work Phone: [facility] 02-11-2024 11:04-0400 Systolic blood pressure 114 mm[Hg] Chidi Martel FIELD TECHNICAL ASSISTANT.SCOUT LEASER Work Phone: [facility] 10-21-2023 10:11-0400 Body mass index (BMI) [Ratio] 38.37 kg/m2 Krislyn Aberegg PA Work Phone: [facility] 10-21-2023 10:11-0400 Body temperature 97.59 [degF] Krislyn Aberegg PA Work Phone: [facility] 10-21-2023 10:11-0400 Body weight 125.7 kg Krislyn Aberegg PA Work Phone: [facility] 10-21-2023 10:11-0400 Diastolic blood pressure 82 mm[Hg] Krislyn Aberegg PA Work Phone: [facility] 10-21-2023 10:11-0400 Heart rate 108 /min Krislyn Aberegg PA Work Phone: [facility] 10-21-2023 10:11-0400 Respiratory rate 16 /min Krislyn Aberegg PA Work Phone: [facility] 10-21-2023 10:11-0400 SaO2% (BldA) [Mass fraction] 98 % Krislyn Aberegg PA Work Phone: [facility] 10-21-2023 10:11-0400 Systolic blood pressure 118 mm[Hg] Krislyn Aberegg PA Work Phone: [facility] 03-20-2023 19:35-0400 Body temperature 97.81 [degF] Elaine Jha FIELD TECHNICAL ASSISTANT.SCOUT LEASER Work Phone: [facility] 03-20-2023 19:35-0400 Body weight 140.89 kg Elaine Jha FIELD TECHNICAL ASSISTANT.SCOUT LEASER Work Phone: [facility] 03-20-2023 19:35-0400 Diastolic blood pressure 90 mm[Hg] Elaine Jha FIELD TECHNICAL ASSISTANT.SCOUT LEASER Work Phone: [facility] 03-20-2023 19:35-0400 Heart rate 95 /min Elaine Jha FIELD TECHNICAL ASSISTANT.SCOUT LEASER Work Phone: [facility] 03-20-2023 19:35-0400 Respiratory rate 21 /min Elaine Jha FIELD TECHNICAL ASSISTANT.SCOUT LEASER Work Phone: [facility] 03-20-2023 19:35-0400 SaO2% (BldA) [Mass fraction] 98 % Elaine Jha FIELD TECHNICAL ASSISTANT.SCOUT LEASER Work Phone: [facility] 03-20-2023 19:35-0400 Systolic blood pressure 122 mm[Hg] Elaine Jha FIELD TECHNICAL ASSISTANT.SCOUT LEASER Work Phone: [facility] 10-05-2022 15:07-0400 Body weight 140.62 kg NA Barrios PA-C Work Phone: [facility] 10-05-2022 15:07-0400 Diastolic blood pressure 84 mm[Hg] NA Barrios PA-C Work Phone: [facility] 10-05-2022 15:07-0400 Heart rate 75 /min NA Barrios PA-C Work Phone: [facility] 10-05-2022 15:07-0400 Respiratory rate 20 /min NA Barrios PA-C Work Phone: [facility] 10-05-2022 15:07-0400 SaO2% (BldA) [Mass fraction] 96 % NA Barrios PA-C Work Phone: [facility] 10-05-2022 15:07-0400 Systolic blood pressure 132 mm[Hg] NA Barrios PA-C Work Phone: [facility] 05-03-2022 17:45-0400 Body weight 141.98 kg NA Barrios PA-C Work Phone: [facility] 05-03-2022 17:45-0400 Diastolic blood pressure 72 mm[Hg] NA Barrios PA-C Work Phone: [facility] 05-03-2022 17:45-0400 Heart rate 80 /min NA Barrios PA-C Work Phone: [facility] 05-03-2022 17:45-0400 Respiratory rate 18 /min NA Barrios PA-C Work Phone: [facility] 05-03-2022 17:45-0400 SaO2% (BldA) [Mass fraction] 96 % NA Barrios PA-C Work Phone: [facility] 05-03-2022 17:45-0400 Systolic blood pressure 130 mm[Hg] NA Barrios PA-C Work Phone: [facility] 01-16-2022 09:53-0400 Body temperature 97.2 [degF] NA Barrios PA-C Work Phone: [facility] 01-16-2022 09:53-0400 Body weight 135.63 kg NA Barrios PA-C Work Phone: [facility] 01-16-2022 09:53-0400 Diastolic blood pressure 84 mm[Hg] NA Barrios PA-C Work Phone: [facility] 01-16-2022 09:53-0400 Heart rate 74 /min NA Barrios PA-C Work Phone: [facility] 01-16-2022 09:53-0400 SaO2% (BldA) [Mass fraction] 97 % NA Barrios PA-C Work Phone: [facility] 01-16-2022 09:53-0400 Systolic blood pressure 128 mm[Hg] NA Barrios PA-C Work Phone: [facility] Encounters Encounter Date Encounter Type Care Provider Facility Start: 04-22-2024 End: 04-23-2024 Telephone encounter Josselin Garibay APRN.SCOUT LEASER Work Phone: [facility] Comment on above: Results Orders Start: 04-02-2024 End: 04-03-2024 ambulatory [facility] Facility:[facility] Start: 03-14-2024 End: 03-14-2024 [facility] Facility:[facility] Start: 03-13-2024 End: 04-07-2024 [facility] Work Phone: Neurology Start: 03-10-2024 End: 03-10-2024 Office outpatient visit 25 minutes Josselin Garibay APRN.SCOUT LEASER Work Phone: [facility] Comment on above: Chest discomfort (Pr imary Dx); RAKESH (obstructive sleep apnea); Fatigue, unspecified type; Polydipsia; Elevated glucose; Family history of early CAD; Restless legs Start: 03-10-2024 End: 03-10-2024 ambulatory [facility] Facility:[facility] Start: 02-11-2024 End: 02-11-2024 ambulatory [facility] Facility:[facility] Start: 02-11-2024 End: 02-11-2024 Patient encounter procedure Chidi Martel APRN.SCOUT LEASER Work Phone: [facility] Comment on above: Sore throat (Primary Dx) Start: 10-21-2023 Telephone encounter Amanda LOPEZ Work Phone: [facility] Comment on above: Results Start: 10-21-2023 End: 10-21-2023 Subsequent hospital visit by physician Cody [facility] Work Phone: Radiology Comment on above: Acute cough [R05.1] Start: 10-21-2023 End: 10-21-2023 ambulatory Nena BARRIOS Facility:[facility] Start: 10-21-2023 End: 10-21-2023 Patient encounter procedure Amanda LOPEZ Work Phone: [facility] Comment on above: Sinobronchitis (Prim stanislav Dx); Acute cough Start: 03-20-2023 End: 03-20-2023 Patient encounter procedure Elaine Jha APRN.SCOUT LEASER Work Phone: [facility] Comment on above: Rash (Primary Dx) Start: 10-05-2022 End: 10-05-2022 Patient encounter procedure Nena Barrios PA-C Work Phone: [facility] Comment on above: Fatty liver disease, nonalcoholic (Primary Dx); Acute right-sided low back pain without sciatica; Testicular pain, right Start: 05-03-2022 End: 05-03-2022 Patient encounter procedure Nena Barrios PA-C Work Phone: [facility] Comment on above: Mixed common migrain e and muscle contraction headache (Primary Dx); Obesity, Class II, BMI 35-39.9; Prehypertension; Screening for lipid disorders Start: 01-29-2022 Telephone encounter Nena Barrios PA-C Work Phone: [facility] Comment on above: Medication Request Start: 01-16-2022 End: 01-16-2022 Patient encounter procedure Nena Barrios PA-C Work Phone: [facility] Comment on above: Plant dermatitis (Pr imary Dx) Procedures Date Procedure Procedure Detail Performing Clinician Start: 03-10-2024 Ecg routine ecg w/le ast 12 lds i&r only [facility] Provider Start: 02-11-2024 STREP A MOLECULAR (POC) Chidi Martel APRN.SCOUT LEASER Work Phone: Start: 10-21-2023 Radiologic exam ches t 2 views Amanda LOPEZ Work Phone: Start: 03-27-2019 Adult depression screening assessment PAULA Barrios PA-C Work Phone: Plan of Treatment Date Care Activity Detail Author Start: 04-27-2024 End: 04-27-2024 Patient encounter procedure 04/27/2024 1:50 PM EDT Office Visit Cardiology [address] [place], [place] [id number] Wstr, Nurse Card Admin Pending Sale To [facility] [address], [place] [id number] Other chest pain [R07.89] Cardiology Comment on above: Other chest pain [R0 7.89] Start: 03-25-2024 End: 03-25-2024 Patient encounter procedure 03/25/2024 10:00 AM EDT Office Visit Neurology [address] [id number] RAKESH (obstructive sleep apnea) [G47.33] Neurology Comment on above: RAKESH (obstructive sle ep apnea) [G47.33] Start: 03-10-2024 End: 06-09-2024 CBC W Auto Differential panel - Blood COMPLETE BLOOD COUNT AND DIFFERENTIAL Lab Routine Fatigue, unspecified type Expected: 03/10/2024, Expires: 06/09/2024 [facility] Comment on above: Expected: 03/10/2024 , Expires: 06/09/2024 Start: 03-10-2024 End: 06-09-2024 Comprehensive metabolic 2000 panel - Serum or Plasma COMPREHENSIVE METABOLIC PANEL Lab Routine Fatigue, unspecified type Polydipsia Expected: 03/10/2024, Expires: 06/09/2024 [facility] Comment on above: Expected: 03/10/2024 , Expires: 06/09/2024 Start: 03-10-2024 End: 06-09-2024 Ferritin [Mass/volume] in Serum or Plasma FERRITIN Lab Routine Restless legs Expected: 03/10/2024, Expires: 06/09/2024 [facility] Comment on above: Expected: 03/10/2024 , Expires: 06/09/2024 Start: 03-10-2024 End: 06-09-2024 Hemoglobin A1c in Blood HEMOGLOBIN A1C Lab Routine Polydipsia Elevated glucose Expected: 03/10/2024, Expires: 06/09/2024 [facility] Comment on above: Expected: 03/10/2024 , Expires: 06/09/2024 Start: 03-10-2024 End: 06-09-2024 Iron and Iron binding capacity panel - Serum or Plasma IRON AND TIBC Lab Routine Restless legs Expected: 03/10/2024, Expires: 06/09/2024 [facility] Comment on above: Expected: 03/10/2024 , Expires: 06/09/2024 Start: 03-10-2024 End: 06-09-2024 Lipid 1996 panel - Serum or Plasma LIPID PANEL BASIC Lab Routine Chest discomfort Expected: 03/10/2024, Expires: 06/09/2024 [facility] Comment on above: Expected: 03/10/2024 , Expires: 06/09/2024 Start: 03-10-2024 End: 06-09-2024 Testosterone [Mass/volume] in Serum or Plasma TESTOSTERONE, TOTAL Lab Routine Fatigue, unspecified type Expected: 03/10/2024, Expires: 06/09/2024 [facility] Comment on above: Expected: 03/10/2024 , Expires: 06/09/2024 Start: 03-10-2024 End: 06-09-2024 Thyrotropin [Units/volume] in Serum or Plasma THYROID STIMULATING HORMONE Lab Routine Fatigue, unspecified type Expected: 03/10/2024, Expires: 06/09/2024 [facility] Comment on above: Expected: 03/10/2024 , Expires: 06/09/2024 Start: 03-10-2024 End: 06-09-2024 Thyroxine (T4) free [Mass/volume] in Serum or Plasma T4 FREE/FREE THYROXINE Lab Routine RAKESH (obstructive sleep apnea) Fatigue, unspecified type Expected: 03/10/2024, Expires: 06/09/2024 [facility] Comment on above: Expected: 03/10/2024 , Expires: 06/09/2024 Start: 03-01-2024 Covid-19 Vaccine ( season) Covid-19 Vaccine ( season) [facility] Start: 03-01-2024 Covid-19 Vaccine () Covid-19 Vaccine ( season) [facility] Start: 03-01-2024 Influenza vaccination C [facility] Start: 11-10-2023 Urine microalbumin profile [facility] Start: 07-01-2023 Behavioral Health Screening Behavioral Health Screening [facility] Start: 05-03-2023 COVID-19 VACCINE (#1) COVID-19 VACCI NE (#1) [facility] Comment on above: Postponed from 03/13 (Declined at this time) Start: 05-03-2023 [facility]PATIT[facility] Comment on above: Postponed from 09/10 (Declined at this time) Start: 05-03-2023 HIV SCREENING HIV SCREENING [facility] Comment on above: Postponed from 09/10 (Declined at this time) Start: 05-03-2023 PNEUMOCOCCAL (1 - PCV) PNEUMOCOCCAL (1 - PCV) [facility] Comment on above: Postponed from 09/10 (Declined at this time) Start: 05-03-2023 Pneumococcal vaccination Pneum ococcal Vaccine (1 - PCV) [facility] Comment on above: Postponed from 09/10 (Declined at this time) Start: 03-01-2023 Covid-19 Vaccine ( season) Covid-19 Vaccine () [facility] Start: 03-01-2023 Influenza vaccination C [facility] Start: 12-28-2022 Influenza vaccination INFLUENZA (#1) [facility] Comment on above: Postponed from 03/01 (Declined at this time) Start: 10-05-2022 End: 12-05-2022 Comprehensive metabolic 2000 panel - Serum or Plasma [facility] Work Phone: Comment on above: Expected: 10/05/2022 , Expires: 12/05/2022 Start: 07-01-2022 DEPRESSION ASSESSMENT DEPRESSION ASS ESSMENT [facility] Start: 05-03-2022 End: 07-03-2022 CBC panel - Blood by Automated count CBC Lab Routine Prehypertension Expected: 05/03/2022, Expires: 07/03/2022 [facility] Work Phone: Comment on above: Expected: 05/03/2022 , Expires: 07/03/2022 Start: 05-03-2022 End: 07-03-2022 Comprehensive metabolic 2000 panel - Serum or Plasma COMP METABOLIC PANEL Lab Routine Prehypertension Expected: 05/03/2022, Expires: 07/03/2022 [facility] Work Phone: Comment on above: Expected: 05/03/2022 , Expires: 07/03/2022 Start: 05-03-2022 End: 07-03-2022 Lipid 1996 panel - Serum or Plasma LIPID PANEL BASIC Lab Routine Screening for lipid disorders Expected: 05/03/2022, Expires: 07/03/2022 [facility] Work Phone: Comment on above: Expected: 05/03/2022 , Expires: 07/03/2022 Start: 03-01-2022 Influenza vaccination INFLUENZA (#1) [facility] Start: 03-27-2020 Adult depression screening assessment DEPRESSION SCREENING [facility] Start: 09-11-2011 Anxiety Screening Anxiety Screening [facility] Start: 09-11-2011 Depression Screening Depression Scre [facility] Start: 09-11-2011 HEPATITIS C SCREENING HEPATITIS C [facility] Start: 09-11-2011 Hepatitis C screening Hepatitis C [facility] Start: 09-11-2011 HIV SCREENING HIV SCREENING [facility] Start: 09-11-2011 HIV screening HIV Screening [facility] Start: 09-11-1999 PNEUMOCOCCAL (1 - PCV) PNEUMOCOCCAL (1 - PCV) [facility] Start: 09-11-1999 Pneumococcal vaccination Pneum ococcal Vaccine (1 of 2 - PCV) [facility] Start: 03-13-1994 COVID-19 VACCINE (#1) COVID-19 VACCI NE (#1) [facility] ECG COMPLETE [facility] Comment on above: Ordered: 03/10/2024 End: 04-22-2025 Echocardiography ECHO Cardiology Routine Abnormal EKG 1 Occurrences starting 04/22/2024 until 04/22/2025 [facility] Work Phone: Comment on above: 1 Occurrences starti ng 04/22/2024 until 04/22/2025 End: 04-22-2025 EXERCISE STRESS ECG (WITHOUT IMAGING) EXERCISE STRESS ECG (WITHOUT IMAGING) Cardiology Routine Abnormal EKG Chest pain, unspecified type Chest discomfort Family history of early CAD Fatigue, unspecified type 1 Occurrences starting 04/22/2024 until 04/22/2025 [facility] Comment on above: 1 Occurrences starti ng 04/22/2024 until 04/22/2025 End: 03-10-2025 HOME SLEEP APNEA TEST (HSAT) HOME SLEEP APNEA TEST (HSAT) Procedures Routine RAKESH (obstructive sleep apnea) 1 Occurrences starting 03/10/2024 until 03/10/2025 [facility] Work Phone: Comment on above: 1 Occurrences starti ng 03/10/2024 until 03/10/2025 End: 03-10-2025 STRESS ECHO TREADMILL STRESS ECHO TREADMILL Cardiology Routine Chest discomfort Family history of early CAD 1 Occurrences starting 03/10/2024 until 03/10/2025 [facility] Comment on above: 1 Occurrences starti ng 03/10/2024 until 03/10/2025 Immunizations Immunization Date Immunization Notes Care Provider Aryan espinal 04-11-2018 influenza virus vaccine, unspecified formulation Elaine Jha APRN.CNP Work Phone: [facility] 11-09-2013 tetanus toxoid, redu froylan diphtheria toxoid, and acellular pertussis vaccine, adsorbed NA Barrios PA-C Work Phone: [facility] 01-12-2009 tetanus toxoid, redu froylan diphtheria toxoid, and acellular pertussis vaccine, adsorbed NA Barrios PA-C Work Phone: [facility] 01-06-2008 Meningococcal, MCV4, unspecified conjugate formulation(groups A, C, Y and W-135) NA Barrios PA-C Work Phone: [facility] 01-15-2003 measles, mumps and rubella virus vaccine NA Barrios PA-C Work Phone: [facility] 05-30-1999 measles, mumps and rubella virus vaccine NA Barrios PA-C Work Phone: [facility] Work Phone: 10-28-1998 diphtheria, tetanus toxoids and acellular pertussis vaccine NA Barrios PA-C Work Phone: [facility] Work Phone: 10-28-1998 poliovirus vaccine, inactivated NA Barrios PA-C Work Phone: [facility] Work Phone: 04-22-1995 DTP-Haemophilus influenzae type b conjugate vaccine NA Barrios PA-C Work Phone: [facility] Work Phone: 04-22-1995 measles, mumps and rubella virus vaccine NA Barrios PA-C Work Phone: [facility] Work Phone: 04-22-1995 poliovirus vaccine, inactivated NA Barrios PA-C Work Phone: [facility] Work Phone: 06-12-1994 DTP-Haemophilus influenzae type b conjugate vaccine NA Barrios PA-C Work Phone: [facility] Work Phone: 06-12-1994 poliovirus vaccine, inactivated NA Barrios PA-C Work Phone: [facility] Work Phone: 03-30-1994 DTP-Haemophilus influenzae type b conjugate vaccine NA Barrios PA-C Work Phone: [facility] Work Phone: 03-30-1994 hepatitis B vaccine, pediatric or pediatric/adolescent dosage NA Barrios PA-C Work Phone: [facility] Work Phone: 03-30-1994 poliovirus vaccine, inactivated NA Barrios PA-C Work Phone: [facility] Work Phone: 1993 DTP-Haemophilus influenzae type b conjugate vaccine NA Barrios PA-C Work Phone: [facility] Work Phone: 1993 hepatitis B vaccine, pediatric or pediatric/adolescent dosage PAULA Barrios PA-C Work Phone: [facility] Work Phone: 1993 poliovirus vaccine, inactivated NA Denis PA-C Work Phone: [facility] Work Phone: 1993 hepatitis B vaccine, pediatric or pediatric/adolescent dosage NA Denis PA-C Work Phone: [facility] Work Phone: Payers Date Payer Category Payer Unknown [id number] 2022 Private Health Insurance [id number] 2022 Private Health Insurance [id number] 2021 Unknown JONO MIXON PPO [id number] 2021-Present [phone] [address] [place] [address] PPO [id number] 2021 Unknown [id number] Social History Date Type Detail Facility Start: 04-11-2018 End: 04-03-2022 Tobacco smoking status PRIS Occasional tobacco smoker [facility] History of tobacco use Cigar Smoker [facility] Start: 04-11-2018 End: 04-03-2022 Tobacco use and exposure Former smokeless tobacco user [facility] tobacco use [facility] Start: 01-16-2022 End: 03-10-2024 Alcohol intake Current non-drinker of alcohol (finding) [facility] Start: 1995 Sex Assigned At Not on file C [facility] Start: 01-06-2022 End: 01-16-2022 Exposure to SARS-CoV-2 (event) Not sure [facility] Start: 10-02-2022 History SDOH Alcohol Frequency 2 [facility] Start: 10-02-2022 History SDOH Alcohol Std Drinks 1 [facility] Start: 10-02-2022 History SDOH Social Connections Phone 5 [facility] Start: 10-02-2022 History SDOH Social Connections Get Together 3 [facility] Start: 10-02-2022 History SDOH Physica l Activity DPW 6 [facility] Start: 10-02-2022 History SDOH Physica l Activity MPS 7 [facility] Start: 10-01-2022 End: 03-09-2024 History of Social function [facility] Start: 10-01-2022 End: 03-09-2024 Social connection and isolation panel [facility] Do you belong to any clubs or organizations such as voodoo groups, minicabits, [employer] or athletic groups, or school groups? No [facility] Are you now , , , , never or living with a partner? [facility] How often to you hav e a drink containing alcohol? Monthly or less [facility] How many standard dr inks containing alcohol do you have on a typical day? 1 or 2 [facility] How often do you hav e 6 or more drinks on 1 occasion? Never [facility] How hard is it for y ou to pay for the very basics like food, housing, medical care, and heating Not hard at all [facility] Do you feel stress - tense, restless, nervous, or anxious, or unable to sleep at night because your mind is troubled all the time - these days [OSQ] Only a little [facility] (I/We) worried wheth er (my/our) food would run out before (I/we) got money to buy more. Never true [facility] Do you belong to any clubs or organizations such as voodoo groups, unions, fraternal or athletic groups, or school groups? Yes [facility] Do you feel stress - tense, restless, nervous, or anxious, or unable to sleep at night because your mind is troubled all the time - these days [OSQ] To some extent [facility] Clinical Notes 10-21-2017 to 04-23-2024 Telephone Encounter - Radha Del Toro LPN - 04/23/2024 10:43 AM EDTTelephone Encounter - Radha Del Toro LPN - 04/23/2024 10:43 AM EDTDoRupa mckinney - 04/07/2024 10:17 AM EDT Note Date & Type Note [facility] 04-23-2024 Telephone encounter Note Patient notified of order changes, verbalizes understanding of instructions. Radha Del Toro LPN . [facility] 04-23-2024 Miscellaneous Notes Patient notified of order changes, verbalizes understanding of instructions. Radha Del Toro LPN . Can please let patient know that I received notice that it looks like the stress echo testing is not being approved by his insurance. I went ahead and changed the stress test to a plain treadmill stress test. I also ordered a separate echocardiogram. The previous test will need to be cancelled. Can we please try to help schedule these? documented in this encounter [facility] 04-22-2024 Telephone encounter Note Can please let patient know that I received notice that it looks like the stress echo testing is not being approved by his insurance. I went ahead and changed the stress test to a plain treadmill stress test. I also ordered a separate echocardiogram. The previous test will need to be cancelled. Can we please try to help schedule these? [facility] 04-22-2024 Telephone encounter Note Pt notified of results/provider response. Pt states he see's Dr. Polanco at [facility] so he will schedule an appt with him to further discuss. Concepcion Grover LPN [facility] 04-22-2024 Miscellaneous Notes Pt notified of results/provider response. Pt states he see's Dr. Polanco at [facility] so he will schedule an appt with him to further discuss. Concepcion Grover LPN Can please let patient know that I received his sleep study. It does confirm at least mild sleep apnea, but the home studies can underestimate the severity. Treatment of mild sleep apnea can include weight loss, positional therapy, treatment of allergies, oral appliance therapy or ENT evaluation of any airway abnormalities. PAP therapy may be considered in patients with documented symptoms of daytime sleepiness, impaired cognition, mood disorder, insomnia, or documented hypertension, ischemic heart disease, or history of stroke. Therefore, if he is having symptoms associated with sleep apnea, like the daytime sleepiness, we can definitely consider restarting cpap treatment. Please let me know how patient would like to proceed. Josselin Garibay APRN.ESTEBAN documented in this encounter [facility] 04-22-2024 Telephone encounter Note Can please let patient know that I received his sleep study. It does confirm at least mild sleep apnea, but the home studies can underestimate the severity. Treatment of mild sleep apnea can include weight loss, positional therapy, treatment of allergies, oral appliance therapy or ENT evaluation of any airway abnormalities. PAP therapy may be considered in patients with documented symptoms of daytime sleepiness, impaired cognition, mood disorder, insomnia, or documented hypertension, ischemic heart disease, or history of stroke. Therefore, if he is having symptoms associated with sleep apnea, like the daytime sleepiness, we can definitely consider restarting cpap treatment. Please let me know how patient would like to proceed. Josselin Garibay APRN.ESTEBAN [facility] Work Phone: 04-07-2024 Note HNO ID: [id number] Author: ?, ?, ? Service: ? Author Type: ? Type: Progress Notes Filed: 04/07/2024 10:18 Note Text: Sleep Study Check-In Documentation Date: April 07, 2024 Name: Asa Matamoros Comments: HST was returned in working order with all sleep questionnaires Rupa Chavez [facility] 04-07-2024 History of Presen t illness Narrative Sleep Study Check-In Documentation Date: April 07, 2024 Name: Asa Matamoros Comments: HST was returned in working order with all sleep questionnaires Rupa Chavez Nomad# [id number] , date shipped out 04/02 Tracking mailout:[id number] [place] Tracking return: [id number] March 13, 2024 Standing PSG Orders signed in the last 90 days None Future PSG Orders signed in the last 90 days Ordered Auth. provider HOME SLEEP APNEA TEST (HSAT) [[id number]] 03/10/24 Josselin Garibay APRN.SCOUT LEASER Assoc. diagnoses: RAKESH (obstructive sleep apnea) [G47.33] Q: Indications: A: Obstructive sleep apnea Q: STOP-BANG conditions - Select All That Apply: A: GENDER = male A2: BMI > 35 kg/m2 A3: TIREDNESS, fatigue or sleepiness during the day Q: Current use of supplemental oxygen during sleep period?: A: No All Prior Sleep Studies (past 365 days) 03/10/2024 16:16 Sleep Studies HOME SLEEP APNEA TEST (HSAT) HOME SLEEP APNEA TEST (HSAT) Order Status: Ordered, Future Expires: 03/10/25 BMI Readings from Last 2 Encounters: 03/10/24 : 37.94 kg/m 02/11/24 : 38.77 kg/m PAST MEDICAL HISTORY Diagnosis Date Concussion Undiagnosed cardiac murmurs The medical record was reviewed to determine if the proposed sleep study conforms to the AASM Practice Parameters for the Indications for Polysomnography and Related Procedures, or if the sleep study is indicated for other reasons. Indications for study: RAKESH suspected without comorbid medical or sleep disorders Sleep study to be performed: Home Sleep Apnea Test (HSAT) Special instructions: None-follow laboratory protocol Yana Miller --- Sleep Medicine Staff Note: I have read the above protocol, edited as needed, and agree to the plan. Mary Benedict III, PhD 2:04 PM, 03/16/2024 March 13, 2024 An order has been received for Home Sleep Apnea Test (HSAT) from Josselin Durham APRN.lilia ORELLANA. [facility] Staff. Visit prep complete. Comments :No The sleep study is scheduled for 03/25. Insurance: Payor: JONO / Plan: BLUE CARD PPO OOS / Product Type: PPO / Payer/Plan Subscr Sex Relation Sub. Ins. ID Effective Group Num 1. JONO BARNETT* SHILOH,JEAN PAUL Moyer 12/28/1996 Female Spouse [id number]* 10/21/23 [id number] [address] Johanna Sylvester documented in this encounter [facility] 04-02-2024 Note HNO ID: [id number] Author: ?, ?, ? Service: ? Author Type: ? Type: Progress Notes Filed: 04/07/2024 10:18 Note Text: Nomad# [id number] , date shipped out 04/02 Tracking mailout:[id number] [place] Tracking return: [id number] [facility] 03-13-2024 Note HNO ID: [id number] Author: MARY BENEDICT III, PhD Service: ? Author Type: Physician Type: Progress Notes Filed: 04/07/2024 10:18 Note Text: March 13, 2024 Standing PSG Orders signed in the last 90 days None Future PSG Orders signed in the last 90 days Ordered Auth. provider HOME SLEEP APNEA TEST (HSAT) [[id number]] 03/10/24 Josselin Garibay APRN.SCOUT LEASER Assoc. diagnoses: RAKESH (obstructive sleep apnea) [G47.33] Q: Indications: A: Obstructive sleep apnea Q: STOP-BANG conditions - Select All That Apply: A: GENDER = male A2: BMI > 35 kg/m2 A3: TIREDNESS, fatigue or sleepiness during the day Q: Current use of supplemental oxygen during sleep period?: A: No All Prior Sleep Studies (past 365 days) 03/10/2024 16:16 Sleep Studies HOME SLEEP APNEA TEST (HSAT) HOME SLEEP APNEA TEST (HSAT) Order Status: Ordered, Future Expires: 03/10/25 BMI Readings from Last 2 Encounters: 03/10/24 : 37.94 kg/m? 02/11/24 : 38.77 kg/m? PAST MEDICAL HISTORY Diagnosis Date Concussion Undiagnosed cardiac murmurs The medical record was reviewed to determine if the proposed sleep study conforms to the AASM Practice Parameters for the Indications for Polysomnography and Related Procedures, or if the sleep study is indicated for other reasons. Indications for study: RAKESH suspected without comorbid medical or sleep disorders Sleep study to be performed: Home Sleep Apnea Test (HSAT) Special instructions: None-follow laboratory protocol Yana Paul --- Sleep Medicine Staff Note: I have read the above protocol, edited as needed, and agree to the plan. Mary Benedict III, PhD 2:04 PM, 03/16/2024 [facility] 03-13-2024 Note HNO ID: [id number] Author: ?, ?, ? Service: ? Author Type: ? Type: Progress Notes Filed: 04/07/2024 10:18 Note Text: March 13, 2024 An order has been received for Home Sleep Apnea Test (HSAT) from Josselin Durham APRN.lilia ORELLANA [facility] Staff. Visit prep complete. Comments :No The sleep study is scheduled for 03/25. Insurance: Payor: ANTHEM / Plan: BLUE CARD PPO OOS / Product Type: PPO / Payer/Plan Subscr Sex Relation Sub. Ins. ID Effective Group Num 1. ANTHEM - BLUE* JEAN PAUL MATAMOROS C 12/28/1996 Female Spouse [id number]* 10/21/23 [id number] [id number] Johanna Sylvester [facility] 03-10-2024 Instructions Josselin Garibay APRN.ESTEBAN - 03/10/2024 4:36 PM EDT Schedule stress test. Return for fasting labwork. Let me know if you don't hear from the sleep study depart. Return after testing. documented in this encounter [facility] 03-10-2024 Note HNO ID: [id number] Author: JOSSELIN GARIBAY APRN.ESTEBAN Service: ? Author Type: Nurse Practitioner Type: Progress Notes Filed: 03/10/2024 17:30 Note Text: This is a 28 year old male who presents today with: Patient presents with: ER F/U: [facility] ER 03/01/24 dx: chest pain HISTORY OF PRESENT ILLNESS: Asa Matamoros is a 28 year old male. Patient presents with: ER F/U: [facility] ER 03/01/24 dx: chest pain Pt presents today for ER follow-up. He went to [facility] on 03/01/2020 fourth with complaints of chest heaviness, tingling down the left arm, mild dyspnea, headache, and racing heart. Refers that he was having pain in the shoulder/chest. Refers felt like someone was ripping his heart out. In the emergency room, he had EKG which showed nonspecific T wave inversion. Negative troponins. Negative D-dimer. CT of the head was negative. ChestX-ray was negative. He was treated with fluids, Reglan, and Benadryl. Discharged with instructions to follow-up for additional testing. He does have a family history of cardiac disease. Patient personally has a history of sleep apnea that is currently not treated. He smokes occasional cigars. Refers the chest pain is improved. He will occasionally gets some musculoskeletal pain in the left shoulder. Reports + fatigue. History of sleep apnea. He was treated with CPAP for approximately 2 years. He reports that he lost weight and no longer needed it. But he is not since gained weight. He does also endorse restless legs. He also reports increased thirst. PAST MEDICAL HISTORY: PAST MEDICAL HISTORY No date: Concussion No date: Undiagnosed cardiac murmurs PAST SURGICAL HISTORY No date: CIRCUMCISION W/CLAMP/OTH DEV W/BLOCK Comment: Circumcision, ALLERGIES Amoxcillin [Amoxicillin] MEDICATIONS Current Outpatient Medications Medication Sig albuterol HFA (PROVENTIL HFA, VENTOLIN HFA) 90 mcg/actuation inhaler Inhale 2 Puffs as instructed every 4 hours as needed for wheezing/shortness of breath. (Patient not taking: Reported on 02/11/2024) benzonatate (TESSALON PERLES) 100 mg capsule Take 1 capsule by mouth three times a day as needed. (Patient not taking: Reported on 02/11/2024) multivitamin tablet Take 1 tablet by mouth once daily. acetaminophen 325 mg-caffeine 40 mg-butalbital 50 mg (FIORICET) per tablet Take 1 tablet by mouth every 4 hours as needed. (Patient not taking: Reported on 10/21/2023) No current facility-administered medications for this visit. FAMILY HISTORY Problem Relation Age of Onset Heart Father AORTIC VALVE Diabetes Paternal Grandfather Breast Cancer Maternal Grandmother Asthma Maternal Grandfather Coronary Artery Disease Maternal Uncle Coronary Artery Disease Maternal Grandfather ME with cardiac arrest age 66 other (migraine [Other]) Mother other (migraine [Other]) Paternal Aunt other (parkinson's disease [Other]) Paternal Grandfather Social History Tobacco Use Smoking status: Some Days Types: Cigars Smokeless tobacco: Former Types: Chew Substance Use Topics Alcohol use: No Drug use: No EXAM: BP 124/90 Pulse 102 Resp 16 Wt 124.3 kg (274 lb) SpO2 96% BMI 37.94 kg/m? PHYSICAL EXAM: General Appearance: Well appearing, alert, in no acute distress, well-hydrated, well nourished.. Skin: Skin color, texture, turgor normal, no suspicious rashes or lesions. Head: Normocephalic, no masses, lesions, tenderness or abnormalities. Eyes: Anicteric sclera. Pupils are equally round and reactive to light. Extraocular movements are intact. . Ears: External ears normal, canals clear. Normal TMs bilaterally. Oropharynx: Lips, mucosa, and tongue normal, teeth and gums normal, oropharynx normal. Neck: Supple, no adenopathy; thyroid symmetric, normal size, no bruits. Lungs: Lungs clear to auscultation. No wheezing, rhonchi, rales.. Heart: RRR without murmur, gallop, or rubs. No ectopy. Abdomen: Abdomen soft, non-tender. Bowel sounds normal. No masses, organomegaly. Extremities: No deformities, edema, skin discoloration, clubbing or cyanosis. Good capillary refill. . Neurologic: Gait normal. ASSESSMENT/PLAN: 1. Chest discomfort - ICD9: 786.59, ICD10: R07.89 (primary diagnosis) Chest pain of unclear etiology, patient with significant risk factor(s) of family history of early coronary heart disease and RAKESH and obesity. EKG - NSR with possible left atrial enlargement. No ST changes or ectopy. With personal hx and family hx, will proceed w/ stress testing. - LIPID PANEL BASIC - STRESS ECHO TREADMILL - ECG COMPLETE 2. RAKESH (obstructive sleep apnea) - ICD9: 327.23, ICD10: G47.33 Get sleep study to eval if reoccurrence of sleep apnea that needs treated. - HOME SLEEP APNEA TEST (HSAT) 3. Fatigue, unspecified type - ICD9: 780.79, ICD10: R53.83 As above. - COMPLETE BLOOD COUNT AND DIFFERENTIAL - COMPREHENSIVE METABOLIC PANEL - THYROID STIMULATING HORMONE - T4 FREE (more content not included)... [facility] 03-10-2024 History of Presen t illness Narrative This is a 28 year old male who presents today with: Patient presents with: ER F/U: [facility] ER 03/01/24 dx: chest pain HISTORY OF PRESENT ILLNESS: Asa Matamoros is a 28 year old male. Patient presents with: ER F/U: [facility] ER 03/01/24 dx: chest pain Pt presents today for ER follow-up. He went to [facility] on 03/01/2020 fourth with complaints of chest heaviness, tingling down the left arm, mild dyspnea, headache, and racing heart. Refers that he was having pain in the shoulder/chest. Refers felt like someone was ripping his heart out. In the emergency room, he had EKG which showed nonspecific T wave inversion. Negative troponins. Negative D-dimer. CT of the head was negative. ChestX-ray was negative. He was treated with fluids, Reglan, and Benadryl. Discharged with instructions to follow-up for additional testing. He does have a family history of cardiac disease. Patient personally has a history of sleep apnea that is currently not treated. He smokes occasional cigars. Refers the chest pain is improved. He will occasionally gets some musculoskeletal pain in the left shoulder. Reports + fatigue. History of sleep apnea. He was treated with CPAP for approximately 2 years. He reports that he lost weight and no longer needed it. But he is not since gained weight. He does also endorse restless legs. He also reports increased thirst. PAST MEDICAL HISTORY: PAST MEDICAL HISTORY No date: Concussion No date: Undiagnosed cardiac murmurs PAST SURGICAL HISTORY No date: CIRCUMCISION W/CLAMP/OTH DEV W/BLOCK Comment: Circumcision, ALLERGIES Amoxcillin [Amoxicillin] MEDICATIONS Current Outpatient Medications Medication Sig albuterol HFA (PROVENTIL HFA, VENTOLIN HFA) 90 mcg/actuation inhaler Inhale 2 Puffs as instructed every 4 hours as needed for wheezing/shortness of breath. (Patient not taking: Reported on 02/11/2024) benzonatate (TESSALON PERLES) 100 mg capsule Take 1 capsule by mouth three times a day as needed. (Patient not taking: Reported on 02/11/2024) multivitamin tablet Take 1 tablet by mouth once daily. acetaminophen 325 mg-caffeine 40 mg-butalbital 50 mg (FIORICET) per tablet Take 1 tablet by mouth every 4 hours as needed. (Patient not taking: Reported on 10/21/2023) No current facility-administered medications for this visit. FAMILY HISTORY Problem Relation Age of Onset Heart Father AORTIC VALVE Diabetes Paternal Grandfather Breast Cancer Maternal Grandmother Asthma Maternal Grandfather Coronary Artery Disease Maternal Uncle Coronary Artery Disease Maternal Grandfather ME with cardiac arrest age 66 other (migraine [Other]) Mother other (migraine [Other]) Paternal Aunt other (parkinson's disease [Other]) Paternal Grandfather Social History Tobacco Use Smoking status: Some Days Types: Cigars Smokeless tobacco: Former Types: Chew Substance Use Topics Alcohol use: No Drug use: No EXAM: BP 124/90 Pulse 102 Resp 16 Wt 124.3 kg (274 lb) SpO2 96% BMI 37.94 kg/m PHYSICAL EXAM: General Appearance: Well appearing, alert, in no acute distress, well-hydrated, well nourished.. Skin: Skin color, texture, turgor normal, no suspicious rashes or lesions. Head: Normocephalic, no masses, lesions, tenderness or abnormalities. Eyes: Anicteric sclera. Pupils are equally round and reactive to light. Extraocular movements are intact. . Ears: External ears normal, canals clear. Normal TMs bilaterally. Oropharynx: Lips, mucosa, and tongue normal, teeth and gums normal, oropharynx normal. Neck: Supple, no adenopathy; thyroid symmetric, normal size, no bruits. Lungs: Lungs clear to auscultation. No wheezing, rhonchi, rales.. Heart: RRR without murmur, gallop, or rubs. No ectopy. Abdomen: Abdomen soft, non-tender. Bowel sounds normal. No masses, organomegaly. Extremities: No deformities, edema, skin discoloration, clubbing or cyanosis. Good capillary refill. . Neurologic: Gait normal. ASSESSMENT/PLAN: 1. Chest discomfort - ICD9: 786.59, ICD10: R07.89 (primary diagnosis) Chest pain of unclear etiology, patient with significant risk factor(s) of family history of early coronary heart disease and RAKESH and obesity. EKG - NSR with possible left atrial enlargement. No ST changes or ectopy. With personal hx and family hx, will proceed w/ stress testing. - LIPID PANEL BASIC - STRESS ECHO TREADMILL - ECG COMPLETE 2. RAKESH (obstructive sleep apnea) - ICD9: 327.23, ICD10: G47.33 Get sleep study to eval if reoccurrence of sleep apnea that needs treated. - HOME SLEEP APNEA TEST (HSAT) 3. Fatigue, unspecified type - ICD9: 780.79, ICD10: R53.83 As above. - COMPLETE BLOOD COUNT AND DIFFERENTIAL - COMPREHENSIVE METABOLIC PANEL - THYROID STIMULATING HORMONE - T4 FREE/FREE THYROXINE - TESTOSTERONE, TOTAL 4. Polydipsia - ICD9: 783.5, ICD10: R63.1 R/o diabetes. - COMPREHENSIVE METABOLIC PANEL - HEMOGLOBIN A1C 5. Elevated glucose - ICD9: 790.29, ICD10: R73.09 R/o diabetes. - HEMOGLOBIN A1C 6. Family history of early CAD - ICD9: V17.3, ICD10: Z82.49 Get stress testing. - STRESS ECHO TREADMILL 7. Restless legs - ICD9: 333.94, ICD10: G25.81 - FERRITIN - IRON AND TIBC Discussed treatment plan and patient voices understanding. Patient's questions answered appropriately. Medications and potential side effects were discussed and patient voices understanding. Return to the office as scheduled or as needed for worsening/no improvement. Josselin Garibay APRN.SCOUT LEASER documented in this encounter [facility] 02-11-2024 Note HNO ID: [id number] Author: CHIDI MARTEL APRN.SCOUT LEASER Service: ? Author Type: Nurse Practitioner Type: Progress Notes Filed: 02/11/2024 11:24 Note Text: Subjective HPI HPI Asa Matamoros is a 28 year old male who presents today for of [facility]. This started 3 days ago. Has tried otc medication for relief. Symptoms are worsened by nothing. Risk factors sick exposures at home. nonsmoker. .Patient presents with: Sore Throat: Nasal drainage x 3 days PAST MEDICAL HISTORY No date: Concussion No date: Undiagnosed cardiac murmurs PAST SURGICAL HISTORY No date: CIRCUMCISION W/CLAMP/OTH DEV W/BLOCK Comment: Circumcision, ALLERGIES Amoxcillin [Amoxicillin] MEDICATIONS multivitamin tablet Take 1 tablet by mouth once daily. albuterol HFA (PROVENTIL HFA, VENTOLIN HFA) 90 mcg/actuation inhaler Inhale 2 Puffs as instructed every 4 hours as needed for wheezing/shortness of breath. (Patient not taking: Reported on 02/11/2024) benzonatate (TESSALON PERLES) 100 mg capsule Take 1 capsule by mouth three times a day as needed. (Patient not taking: Reported on 02/11/2024) acetaminophen 325 mg-caffeine 40 mg-butalbital 50 mg (FIORICET) per tablet Take 1 tablet by mouth every 4 hours as needed. (Patient not taking: Reported on 10/21/2023) FAMILY HISTORY Problem Relation Age of Onset Heart Father AORTIC VALVE Diabetes Paternal Grandfather Breast Cancer Maternal Grandmother Asthma Maternal Grandfather Coronary Artery Disease Maternal Uncle Coronary Artery Disease Maternal Grandfather ME with cardiac arrest age 66 other (migraine [Other]) Mother other (migraine [Other]) Paternal Aunt other (parkinson's disease [Other]) Paternal Grandfather Social History Tobacco Use Smoking status: Some Days Types: Cigars Smokeless tobacco: Former Types: Chew Substance Use Topics Alcohol use: No Drug use: No Review of Systems Constitutional: Negative for fever. HENT: Positive for congestion and sore throat. Negative for ear pain and nosebleeds. Respiratory: Negative for cough, shortness of breath and wheezing. Musculoskeletal: Negative for neck pain. Skin: Negative for itching and rash. Objective Blood pressure 114/78, pulse 90, temperature 36.4 ?C (97.6 ?F), resp. rate 18, weight 127 kg (279 lb 15.8 oz), SpO2 98%. Physical Exam Constitutional: General: He is not in acute distress. Appearance: He is not toxic-appearing or diaphoretic. HENT: Head: Normocephalic and atraumatic. Mouth/Throat: Lips: [place]. Mouth: Mucous membranes are moist. Pharynx: Uvula midline. Posterior oropharyngeal erythema present. Tonsils: No tonsillar exudate. Cardiovascular: Rate and Rhythm: Normal rate and regular rhythm. Heart sounds: Normal heart sounds, S1 normal and S2 normal. Pulmonary: Effort: Pulmonary effort is normal. Breath sounds: Normal breath sounds. Lymphadenopathy: Cervical: No cervical adenopathy. Right cervical: No superficial cervical adenopathy. Left cervical: No superficial cervical adenopathy. Neurological: Mental Status: He is alert and oriented to person, place, and time. Gait: Gait is intact. ASSESSMENT/PLAN: 1. Sore throat - ICD9: 462, ICD10: J02.9 - suspect viral - Group A strep molecular testing negative - Discussed supportive care treatment with fluids, rest and analgesia. - The patient should follow up in 3-5 days if symptoms persist or worsen - STREP A MOLECULAR (POC) Chidi Martel APRN.ESTEBAN [facility] 02-11-2024 History of Presen t illness Narrative Subjective HPI HPI Asa Matamoros is a 28 year old male who presents today for CC of [facility]. This started 3 days ago. Has tried otc medication for relief. Symptoms are worsened by nothing. Risk factors sick exposures at home. nonsmoker. .Patient presents with: Sore Throat: Nasal drainage x 3 days PAST MEDICAL HISTORY No date: Concussion No date: Undiagnosed cardiac murmurs PAST SURGICAL HISTORY No date: CIRCUMCISION W/CLAMP/OTH DEV W/BLOCK Comment: Circumcision, ALLERGIES Amoxcillin [Amoxicillin] MEDICATIONS multivitamin tablet Take 1 tablet by mouth once daily. albuterol HFA (PROVENTIL HFA, VENTOLIN HFA) 90 mcg/actuation inhaler Inhale 2 Puffs as instructed every 4 hours as needed for wheezing/shortness of breath. (Patient not taking: Reported on 02/11/2024) benzonatate (TESSALON PERLES) 100 mg capsule Take 1 capsule by mouth three times a day as needed. (Patient not taking: Reported on 02/11/2024) acetaminophen 325 mg-caffeine 40 mg-butalbital 50 mg (FIORICET) per tablet Take 1 tablet by mouth every 4 hours as needed. (Patient not taking: Reported on 10/21/2023) FAMILY HISTORY Problem Relation Age of Onset Heart Father AORTIC VALVE Diabetes Paternal Grandfather Breast Cancer Maternal Grandmother Asthma Maternal Grandfather Coronary Artery Disease Maternal Uncle Coronary Artery Disease Maternal Grandfather ME with cardiac arrest age 66 other (migraine [Other]) Mother other (migraine [Other]) Paternal Aunt other (parkinson's disease [Other]) Paternal Grandfather Social History Tobacco Use Smoking status: Some Days Types: Cigars Smokeless tobacco: Former Types: Chew Substance Use Topics Alcohol use: No Drug use: No Review of Systems Constitutional: Negative for fever. HENT: Positive for congestion and sore throat. Negative for ear pain and nosebleeds. Respiratory: Negative for cough, shortness of breath and wheezing. Musculoskeletal: Negative for neck pain. Skin: Negative for itching and rash. Objective Blood pressure 114/78, pulse 90, temperature 36.4 C (97.6 F), resp. rate 18, weight 127 kg (279 lb 15.8 oz), SpO2 98%. Physical Exam Constitutional: General: He is not in acute distress. Appearance: He is not toxic-appearing or diaphoretic. HENT: Head: Normocephalic and atraumatic. Mouth/Throat: Lips: [place]. Mouth: Mucous membranes are moist. Pharynx: Uvula midline. Posterior oropharyngeal erythema present. Tonsils: No tonsillar exudate. Cardiovascular: Rate and Rhythm: Normal rate and regular rhythm. Heart sounds: Normal heart sounds, S1 normal and S2 normal. Pulmonary: Effort: Pulmonary effort is normal. Breath sounds: Normal breath sounds. Lymphadenopathy: Cervical: No cervical adenopathy. Right cervical: No superficial cervical adenopathy. Left cervical: No superficial cervical adenopathy. Neurological: Mental Status: He is alert and oriented to person, place, and time. Gait: Gait is intact. ASSESSMENT/PLAN: 1. Sore throat - ICD9: 462, ICD10: J02.9 - suspect viral - Group A strep molecular testing negative - Discussed supportive care treatment with fluids, rest and analgesia. - The patient should follow up in 3-5 days if symptoms persist or worsen - STREP A MOLECULAR (POC) Chidi Martel APRN.SCOUT LEASER documented in this encounter [facility] 10-21-2023 Telephone encounter Note Patient given results and verbalized understanding of instructions given. Aubree Roberts MA [facility] 10-21-2023 Miscellaneous Notes Patient given results and verbalized understanding of instructions given. Aubree Roberts MA Please call patient and let him know chest x-ray was normal. No pneumonia. Take medication as prescribed at visit. documented in this encounter [facility] 10-21-2023 Telephone encounter Note Please call patient and let him know chest x-ray was normal. No pneumonia. Take medication as prescribed at visit. [facility] 10-21-2023 History of Presen t illness Narrative Radiology Service Progress Note PATIENT NAME: Asa Matamoros DATE OF SERVICE: October 21, 2023 TIME: 11:25 AM PATIENT IDENTITY VERIFICATION COMPLETED USING TWO (2) IDENTIFIERS: Name and Date of confirmed by patient verbally. FALL SCREENING: Has the patient had 2 falls in the last year or 1 fall with injury or currently using an Ambulatory Assistive Device (Walker, Cane, Wheelchair, Crutches, etc.)? No PATIENT GENDER DATA: Male PATIENT RELEVANT IMPLANT DATA REVIEWED: Yes PATIENT PRESENTS WITH AN IMPLANTABLE OR ATTACHED MECHANICAL ENGINEER: No RADIOLOGY DEPARTMENT: General X-ray: Exam(s) Completed: Chest X-Ray PERIPHERAL IV DATA: Not applicable SIGNED BY: CHERRY Brown) October 21, 2023 11:25 AM documented in this encounter [facility] 10-21-2023 Note HNO ID: [id number] Author: RODGER GATES RT (R) Service: Radiology Author Type: Technologist Type: Progress Notes Filed: 10/21/2023 11:30 Note Text: Radiology Service Progress Note PATIENT NAME: Asa Matamoros DATE OF SERVICE: October 21, 2023 TIME: 11:25 AM PATIENT IDENTITY VERIFICATION COMPLETED USING TWO (2) IDENTIFIERS: Name and Date of confirmed by patient verbally. FALL SCREENING: Has the patient had 2 falls in the last year or 1 fall with injury or currently using an Ambulatory Assistive Device (Walker, Cane, Wheelchair, Crutches, etc.)? No PATIENT GENDER DATA: Male PATIENT RELEVANT IMPLANT DATA REVIEWED: Yes PATIENT PRESENTS WITH AN IMPLANTABLE OR ATTACHED MECHANICAL ENGINEER: No RADIOLOGY DEPARTMENT: General X-ray: Exam(s) Completed: Chest X-Ray PERIPHERAL IV DATA: Not applicable SIGNED BY: RT Stephanie(R) October 21, 2023 11:25 AM [facility] 10-21-2023 Note HNO ID: [id number] Author: AMANDA NELSON PA Service: ? Author Type: Physician Project Landscape Architect Type: Progress Notes Filed: 10/22/2023 14:31 Note Text: This note was created using GameSkinnyriter. Subjective Asa Matamoros is a 28 year old male. HPI 28-year-old male presents for cough, congestion x 2 weeks. Patient states 2 weeks ago he started getting a cough. He states it is mainly a dry cough. He also has nasal congestion and drainage. He states that 3 days ago he started getting body aches, chills and feeling feverish. He did not actually take his temperature. No vomiting or diarrhea. No sick contacts that he is aware of. No history of COPD or asthma. He smokes a cigar occasionally, but not daily. No chest pain or shortness of breath. He has been taking DayQuil and NyQuil without improvement. no other complaint. PAST MEDICAL HISTORY Diagnosis Date Concussion Undiagnosed cardiac murmurs PAST SURGICAL HISTORY Procedure Laterality Date CIRCUMCISION W/CLAMP/OTH DEV W/BLOCK Circumcision, ALLERGIES Amoxcillin [Amoxicillin] MEDICATIONS multivitamin tablet Take 1 tablet by mouth once daily. acetaminophen 325 mg-caffeine 40 mg-butalbital 50 mg (FIORICET) per tablet Take 1 tablet by mouth every 4 hours as needed. (Patient not taking: Reported on 10/21/2023) FAMILY HISTORY Problem Relation Age of Onset Heart Father AORTIC VALVE Diabetes Paternal Grandfather Breast Cancer Maternal Grandmother Asthma Maternal Grandfather Coronary Artery Disease Maternal Uncle Coronary Artery Disease Maternal Grandfather ME with cardiac arrest age 66 other (migraine [Other]) Mother other (migraine [Other]) Paternal Aunt other (parkinson's disease [Other]) Paternal Grandfather Social History Tobacco Use Smoking status: Some Days Types: Cigars Smokeless tobacco: Former Types: Chew Substance Use Topics Alcohol use: No Drug use: No Review of Systems Constitutional: Positive for chills and fever (tactile). HENT: Positive for congestion and sinus pressure. Negative for sore throat. Respiratory: Positive for cough. Negative for shortness of breath. Gastrointestinal: Negative for diarrhea and vomiting. Objective BP 118/82 Pulse 108 Temp 36.4 ?C (97.6 ?F) (Tympanic) Resp 16 Wt 125.7 kg (277 lb 1.9 oz) SpO2 98% BMI 38.37 kg/m? Physical Exam Vitals and nursing note reviewed. Constitutional: General: He is not in acute distress. Appearance: Normal appearance. He is not toxic-appearing. HENT: Right Ear: Tympanic membrane and ear canal normal. Left Ear: Tympanic membrane and ear canal normal. Nose: Congestion present. Mouth/Throat: Mouth: Mucous membranes are moist. Eyes: Conjunctiva/sclera: Conjunctivae normal. Cardiovascular: Rate and Rhythm: Normal rate and regular rhythm. Pulmonary: Effort: Pulmonary effort is normal. Breath sounds: Wheezing (Mild wheezing with cough) present. No rhonchi or rales. Skin: General: Skin is warm and dry. Neurological: Mental Status: He is alert. Assessment and Plan ASSESSMENT/PLAN: 1. Sinobronchitis - ICD9: 473.9, 490, ICD10: J32.9, J40 (primary diagnosis) - Will begin treatment with Doxycycline -Rx for prednisone, tessalon Perles, albuterol inhaler - Supportive care with plenty of fluids, rest, and analgesia prn. 2. Acute cough - ICD9: 786.2, ICD10: R05.1 - XR CHEST 2V FRONTAL/LAT-no acute finding. -Will treat for sinobronchitis. See above. Diagnosis and treatment plan were discussed and questions were answered to the patient's satisfaction. Pt acknowledged understanding of concepts and follow up plan. Specific signs and symptoms that would indicate the need for higher level of care were discussed in detail warranting prompt ER evaluation. JESSICA Dove [facility] 10-21-2023 History of Presen t illness Narrative This note was created using Game[employer]. Subjective Asa Matamoros is a 28 year old male. HPI 28-year-old male presents for cough, congestion x 2 weeks. Patient states 2 weeks ago he started getting a cough. He states it is mainly a dry cough. He also has nasal congestion and drainage. He states that 3 days ago he started getting body aches, chills and feeling feverish. He did not actually take his temperature. No vomiting or diarrhea. No sick contacts that he is aware of. No history of COPD or asthma. He smokes a cigar occasionally, but not daily. No chest pain or shortness of breath. He has been taking DayQuil and NyQuil without improvement. no other complaint. PAST MEDICAL HISTORY Diagnosis Date Concussion Undiagnosed cardiac murmurs PAST SURGICAL HISTORY Procedure Laterality Date CIRCUMCISION W/CLAMP/OTH DEV W/BLOCK Circumcision, ALLERGIES Amoxcillin [Amoxicillin] MEDICATIONS multivitamin tablet Take 1 tablet by mouth once daily. acetaminophen 325 mg-caffeine 40 mg-butalbital 50 mg (FIORICET) per tablet Take 1 tablet by mouth every 4 hours as needed. (Patient not taking: Reported on 10/21/2023) FAMILY HISTORY Problem Relation Age of Onset Heart Father AORTIC VALVE Diabetes Paternal Grandfather Breast Cancer Maternal Grandmother Asthma Maternal Grandfather Coronary Artery Disease Maternal Uncle Coronary Artery Disease Maternal Grandfather ME with cardiac arrest age 66 other (migraine [Other]) Mother other (migraine [Other]) Paternal Aunt other (parkinson's disease [Other]) Paternal Grandfather Social History Tobacco Use Smoking status: Some Days Types: Cigars Smokeless tobacco: Former Types: Chew Substance Use Topics Alcohol use: No Drug use: No Review of Systems Constitutional: Positive for chills and fever (tactile). HENT: Positive for congestion and sinus pressure. Negative for sore throat. Respiratory: Positive for cough. Negative for shortness of breath. Gastrointestinal: Negative for diarrhea and vomiting. Objective BP 118/82 Pulse 108 Temp 36.4 C (97.6 F) (Tympanic) Resp 16 Wt 125.7 kg (277 lb 1.9 oz) SpO2 98% BMI 38.37 kg/m Physical Exam Vitals and nursing note reviewed. Constitutional: General: He is not in acute distress. Appearance: Normal appearance. He is not toxic-appearing. HENT: Right Ear: Tympanic membrane and ear canal normal. Left Ear: Tympanic membrane and ear canal normal. Nose: Congestion present. Mouth/Throat: Mouth: Mucous membranes are moist. Eyes: Conjunctiva/sclera: Conjunctivae normal. Cardiovascular: Rate and Rhythm: Normal rate and regular rhythm. Pulmonary: Effort: Pulmonary effort is normal. Breath sounds: Wheezing (Mild wheezing with cough) present. No rhonchi or rales. Skin: General: Skin is warm and dry. Neurological: Mental Status: He is alert. Assessment and Plan ASSESSMENT/PLAN: 1. Sinobronchitis - ICD9: 473.9, 490, ICD10: J32.9, J40 (primary diagnosis) - Will begin treatment with Doxycycline -Rx for prednisone, tessalon Perles, albuterol inhaler - Supportive care with plenty of fluids, rest, and analgesia prn. 2. Acute cough - ICD9: 786.2, ICD10: R05.1 - XR CHEST 2V FRONTAL/LAT-no acute finding. -Will treat for sinobronchitis. See above. Diagnosis and treatment plan were discussed and questions were answered to the patient's satisfaction. Pt acknowledged understanding of concepts and follow up plan. Specific signs and symptoms that would indicate the need for higher level of care were discussed in detail warranting prompt ER evaluation. JESSICA Dove documented in this encounter [facility] 03-20-2023 History of Presen t illness Narrative Images from the original note were not included. Subjective Patient came in with complaints of itching rash on bilateral arms private area and right ankle. Patient says he was in the [place]. Patient says he thinks he got into some poison janelle. Patient denies any other significant symptoms. Denies any difficulty urinating. The history is provided by the patient. No asphalt mixer was used. Rash Review of Systems Constitutional: Negative. Skin: Positive for itching and rash. Objective Physical Exam Constitutional: Appearance: Normal appearance. Pulmonary: Effort: Pulmonary effort is normal. Skin: Comments: Patient has vesicular dermatitis located in the areas marked above. Consistent with poison janelle. Neurological: Mental Status: He is alert. PAST MEDICAL HISTORY Diagnosis Date Concussion Undiagnosed cardiac murmurs PAST SURGICAL HISTORY Procedure Laterality Date CIRCUMCISION W/CLAMP/OTH DEV W/BLOCK Circumcision, ALLERGIES Amoxcillin [Amoxicillin] MEDICATIONS multivitamin tablet Take 1 tablet by mouth once daily. acetaminophen 325 mg-caffeine 40 mg-butalbital 50 mg (FIORICET) per tablet Take 1 tablet by mouth every 4 hours as needed. predniSONE (DELTASONE) 10 mg tablet Take 4 tabs daily for 3 days, then 2 tabs daily for 3 days, then 1 tab daily for 3 days with food. FAMILY HISTORY Problem Relation Age of Onset Heart Father AORTIC VALVE Diabetes Paternal Grandfather Breast Cancer Maternal Grandmother Asthma Maternal Grandfather Coronary Artery Disease Maternal Uncle Coronary Artery Disease Maternal Grandfather ME with cardiac arrest age 66 other (migraine [Other]) Mother other (migraine [Other]) Paternal Aunt other (parkinson's disease [Other]) Paternal Grandfather Social History Tobacco Use Smoking status: Some Days Types: Cigars Smokeless tobacco: Former Types: Chew Substance Use Topics Alcohol use: No Drug use: No ASSESSMENT/PLAN: 1. Rash - ICD9: 782.1, ICD10: R21 - PREDNISONE 10 MG TABLET Patient was educated about proper use of medication supportive therapies. Patient will follow-up if signs and symptoms seem to getting worse not better. Patient was okay with this care plan. Marisol Moore APRN.ESTEBAN documented in this encounter [facility] 10-05-2022 History of Presen t illness Narrative 27 year old male with c/o here to discuss fatty liver found on recent ER evaluation. 09/04/2022 presented to [facility] ER with complaint of right-sided back pain radiating into the groin and testicle, moderate to severe, worse with ambulation and bending, followed doing a lot of bending and lifting and a christianity project with a friend. Review of systems was otherwise negative. Exam: Vital signs 97.6-70-14-136/88-99% RA. Physical exam was essentially normal with no significant abdominal pain, normal genital exams. Was able to reproduce pain throughout lumbosacral paraspinal areas and SI joints. Neuro exam was normal. Urinalysis micro showed 2+ bacteria but no significant WBC or RBC. CT of abdomen/pelvis showed fatty infiltration of liver, no other acute findings. Dr. Jeanine MOLINA in [place], did cupping, gave stretches. HISTORIES FAMILY HISTORY Problem Relation Age of Onset Heart Father AORTIC VALVE Diabetes Paternal Grandfather Breast Cancer Maternal Grandmother Asthma Maternal Grandfather Coronary Artery Disease Maternal Uncle Coronary Artery Disease Maternal Grandfather ME with cardiac arrest age 66 other (migraine [Other]) Mother other (migraine [Other]) Paternal Aunt other (parkinson's disease [Other]) Paternal Grandfather PAST MEDICAL HISTORY Diagnosis Date Concussion Undiagnosed cardiac murmurs PAST SURGICAL HISTORY Procedure Laterality Date CIRCUMCISION W/CLAMP/OTH DEV W/BLOCK Circumcision, Social History Tobacco Use Smoking status: Some Days Types: Cigars Smokeless tobacco: Former Types: Chew Substance Use Topics Alcohol use: No Drug use: No ACTIVE PROBLEM LIST White Matter Abnormality On Mri of Brain Prehypertension Obesity, Class II, Bmi 35-39.9 Intractable Chronic Migraine Without Aura and Without Status Migrainosus Chronic Bilateral Low Back Pain With Bilateral Sciatica Tension Headache Current Outpatient Medications Medication Sig Dispense Refill multivitamin tablet Take 1 tablet by mouth once daily. acetaminophen 325 mg-caffeine 40 mg-butalbital 50 mg (FIORICET) per tablet Take 1 tablet by mouth every 4 hours as needed. 20 tablet 0 No current facility-administered medications for this visit. DEPRESSION ASSESSMENT due on 07/01/2022 EXAM: BP 132/84 Pulse 75 Resp 20 Wt (!) 140.6 kg (310 lb) SpO2 96% BMI 42.92 kg/m Pleasant overweight young man in no acute distress. Alert and oriented all spheres. Normal affect and cognition. Speech normal. No deficits to learning or comprehension. Skin warm, dry, pink to lips and nailbeds. Normal turgor. Respirations regular and unlabored. HEENT: NCAT. No scleral icterus or conjunctival injection. TM's clear. Nose and oropharynx free from injection or lesion. Oral membranes moist and pink. No cervical lymph nodes. Thyroid non-tender, no masses, or enlargement. Carotids pulses 2+/4+ without bruits. No JVD with HOB at 30 degrees. Chest is normal shape. Lungs are clear to all mena with good air exchange through out. HRRR without murmur or gallop. No lifts, heaves, or rubs. Abdomen: active bowel sounds throughout, soft, nontender, no masses or organomegaly. No CVAT. Penis circumcised, normal male. Testicles descended bilaterally 4gm mass, slightly tender on right over upper pole epididymus without mass. No masses or nodules. No hernias. Back very mildly tender right lumbar, able to touch toes. No significant pain. ASSESSMENT/PLAN: 1. Fatty liver disease, nonalcoholic - ICD9: 571.8, ICD10: K76.0 (primary diagnosis) Educated on fatty liver: avoid regular or excessive alcohol use, slight increase in lifetime risk of cirrhosis. Weight loss would be beneficial. Check labs - COMP METABOLIC PANEL - CBC 2. Acute right-sided low back pain without sciatica - ICD9: 724.2, ICD10: M54.50 Resolved. Reviewed stretches with [facility] lumbar rehab and [place] piriformis stretching handouts 3. Testicular pain, right - ICD9: 608.9, ICD10: N50.811 Very mild, patient will monitor and let me know if changes. Nena Barrios PA-C documented in this encounter [facility] 05-03-2022 History of Presen t illness Narrative 26 year old male with c/o recurrent headaches. Was last seen on 04/03/22 complaining of headaches described as throbbing and headband-like . Says headaches have improved since last visit, now only getting them once a week. Has been relaxing and not working out as much. Takes acetaminophen sometimes which seems to help. Trial Fioracet --> has taken once for one episode. Took during episode which resolved the headache in 15-20 minutes. HISTORIES FAMILY HISTORY Problem Relation Age of Onset Heart Father AORTIC VALVE Diabetes Paternal Grandfather Breast Cancer Maternal Grandmother Asthma Maternal Grandfather Coronary Artery Disease Maternal Uncle Coronary Artery Disease Maternal Grandfather ME with cardiac arrest age 66 other (migraine [Other]) Mother other (migraine [Other]) Paternal Aunt other (parkinson's disease [Other]) Paternal Grandfather PAST MEDICAL HISTORY Diagnosis Date Concussion Undiagnosed cardiac murmurs PAST SURGICAL HISTORY Procedure Laterality Date CIRCUMCISION W/CLAMP/OTH DEV W/BLOCK Circumcision, Social History Tobacco Use Smoking status: Some Days Types: Cigars Smokeless tobacco: Former Types: Chew Substance Use Topics Alcohol use: No Drug use: No ACTIVE PROBLEM LIST White Matter Abnormality On Mri of Brain Prehypertension Obesity, Class II, Bmi 35-39.9 Intractable Chronic Migraine Without Aura and Without Status Migrainosus Chronic Bilateral Low Back Pain With Bilateral Sciatica Current Outpatient Medications Medication Sig Dispense Refill multivitamin tablet Take 1 tablet by mouth once daily. acetaminophen 325 mg-caffeine 40 mg-butalbital 50 mg (FIORICET) per tablet Take 1 tablet by mouth every 4 hours as needed. 20 tablet 0 No current facility-administered medications for this visit. COVID-19 VACCINE(1) Never done PNEUMOCOCCAL(1 - PCV) Never done HEPATITIS C SCREENING Never done HIV SCREENING Never done INFLUENZA(1) due on 03/01/2022 EXAM: BP 130/72 Pulse 80 Resp 18 Wt (!) 142 kg (313 lb) SpO2 96% BMI 43.34 kg/m Pleasant WDWN 26 y/o male in no acute distress. Alert and oriented all spheres. Normal affect and cognition. Speech normal. No deficits to learning or comprehension. Skin warm, dry, pink to lips and nailbeds. Normal turgor. Respirations regular and unlabored. HEENT: NCAT. No scleral icterus or conjunctival injection. TM's clear. Nose and oropharynx free from injection or lesion. Oral membranes moist and pink. No cervical lymph nodes. Thyroid non-tender, no masses, or enlargement. Neck supple, non-tender. Extrem: no clubbing or cyanosis. Edema: none. Extremities are warm and pink with prompt capillary refill. ASSESSMENT/PLAN: 1. 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 Complimented lifestyle changes. 2. Obesity, Class II, BMI 35-39.9 - ICD9: 278.00, ICD10: E66.9 Weight increasing - Behavioral intervention Feels he can resolve himself- offered nutritional counseling. 3. Prehypertension - ICD9: 796.2, ICD10: R03.0 - Encouraged dietary sodium restriction/DASH diet - Recommended regular aerobic exercise. - Recommend home blood pressure monitoring, to bring results in on next visit - Goal of BP <130/80 - COMP METABOLIC PANEL - CBC 4. Screening for lipid disorders - ICD9: V77.91, ICD10: Z13.220 - LIPID PANEL BASIC Nena Barrios PA-C documented in this encounter [facility] 01-29-2022 Miscellaneous Notes Pt notified. He verbalized understanding. Concepcion Grover LPN That's already a pretty lengthy course. I can dose one more time with a medrol. If persists, needs seen Patient calling for refill of Prednisone for recurrence of poison janelle. He finished his first course on 01/28. States the poison janelle hives are coming back and are sidespread on his abdomen and arms. Randa Marsh RN documented in this encounter [facility] 01-16-2022 Instructions M David Barrios PA-C - 01/16/2022 10:06 AM EDT Poison janelle is not an infection and does not spread in your blood stream. I triggers a class 4 urticarial (hive) response in your t-cell lymphocytes. It spreads as additional lymphocytes are signaled through you immune system. Once you have washed thoroughly with soap and warm water it cannot be transferred to someone else. The fluid from blisters does not contain poison janelle, it is body fluid. Prednisone as directed per prescription will usually calm the rash over a few days. Do not stop the prednisone suddenly. It must be tapered. Triamcinolone cream as needed 2-3 time a day in addition, up to 2 weeks and then at least one week off. OTC Benadryl or Clariten may help with itching. Try not to scratch as it will make lesion itch more and make infect them. Cold water is effective for relieving itch. Try to avoid hot water or being over heated or sweaty. OTC poison janelle products give only temporary relief and especially gels, soaps and/or astringents cause drying of the skin which may make the itching worse. Janelle Block can prevent rash in future: apply as directed before you go outside. If rash does not improve in next 3 days, or seems to worsen as prednisone is tapered, call me. Please do not use bleach in the future due to risk of carcinogenic potential and chemical garsia. Use greasy emollients to moisten and soften skin. documented in this encounter [facility] 01-16-2022 History of Presen t illness Narrative 26 year old male with c/o rash over 5-6 days, after working in yard, weed eating. History of poison janelle in the past frequently. HISTORIES FAMILY HISTORY Problem Relation Age of Onset Heart Father AORTIC VALVE Diabetes Paternal Grandfather Breast Cancer Maternal Grandmother Asthma Maternal Grandfather Coronary Artery Disease Maternal Uncle Coronary Artery Disease Maternal Grandfather ME with cardiac arrest age 66 other (migraine [Other]) Mother other (migraine [Other]) Paternal Aunt other (parkinson's disease [Other]) Paternal Grandfather PAST MEDICAL HISTORY Diagnosis Date Concussion Undiagnosed cardiac murmurs PAST SURGICAL HISTORY Procedure Laterality Date CIRCUMCISION W/CLAMP/OTH DEV W/BLOCK Circumcision, Social History Tobacco Use Smoking status: Current Some Day Smoker Types: Cigars Smokeless tobacco: Former User Types: Chew Substance Use Topics Alcohol use: No Drug use: No ACTIVE PROBLEM LIST White Matter Abnormality On Mri of Brain Prehypertension Obesity, Class II, Bmi 35-39.9 Intractable Chronic Migraine Without Aura and Without Status Migrainosus Chronic Bilateral Low Back Pain With Bilateral Sciatica Current Outpatient Medications Medication Sig Dispense Refill ACETAMINOPHEN (TYLENOL EXTRA STRENGTH ORAL) Take by mouth as needed. predniSONE (DELTASONE) 10 mg tablet Take 6 tabs for 3 days, then 4 tabs for 3 days, then 2 tabs for 3 days then 1 tab for 3 days with food. 39 tablet 0 triamcinolone acetonide (KENALOG) 0.1 % cream Apply 1 application to affected area three times daily for 15 days. Apply sparingly to area for rash/itching. 60 g 0 No current facility-administered medications for this visit. COVID-19 VACCINE(1) Never done PNEUMOCOCCAL(1 - PCV) Never done HEPATITIS C SCREENING Never done HIV SCREENING Never done DEPRESSION SCREENING due on 03/27/2020 EXAM: BP 128/84 Pulse 74 Temp 36.2 C (97.2 F) (Tympanic) Wt 135.6 kg (299 lb) SpO2 97% BMI 40.55 kg/m Pleasant well-appearing overweight adult male in no acute distress. Alert and oriented all spheres. Normal affect and cognition. Speech normal. No deficits to learning or comprehension. Skin warm, dry, pink to lips and nailbeds. Normal turgor. Multiple pruritic red lesions 3 to 4 mm in size scattered over legs in addition to patches and streaks on the legs and on forearms, a few small areas on trunk, also right temporal area facial. Respirations regular and unlabored. Chest is normal shape. Lungs are clear to all mena with good air exchange through out. HRRR without murmur or gallop. No lifts, heaves, or rubs. Extrem: no clubbing or cyanosis. Edema: none. Extremities are warm and pink with prompt capillary refill. ASSESSMENT/PLAN: 1. Plant dermatitis - ICD9: 692.6, ICD10: L25.5 - Oral Steriod tx -Prednisone taper - Topical steriod tx with Rx for steriod cream/ointment- see orders - discussed skin care of rash - follow up if symptoms persist or worsen. - See d/c instructions Nena Barrios PA-C Some of this note may have been copied and pasted for the purpose of history context and comparison. documented in this encounter [facility] 10-21-2017 History of Past i llness Narrative Problem Noted Date Resolved Date Obesity, Class III, BMI 40-49.9 (morbid obesity) 10/21/2017 11/18/2017 Iliotibial band syndrome of right side 4 09/27/2017 Postconcussion syndrome 01/11/2011 09/28/19 18 Lumbago 02/23/2006 09/27/2017 Attention deficit disorder with hyperactivity(31 4.01) 02/23/2006 09/27/2017 documented as of this encounter (statuses as of 01/16/2022) [facility]04-23-2018 History of Past illness Narrative* Problem Noted Date Resolved Date Obesity, Class III, BMI 40-49.9 (morbid obesity) 10/21/2017 11/18/2017 Iliotibial band syndrome of right side 4 09/27/2017 Postconcussion syndrome 01/11/2011 09/28/19 18 Lumbago 02/23/2006 09/27/2017 Attention deficit disorder with hyperactivity(31 4.01) 02/23/2006 09/27/2017 documented as of this encounter (statuses as of 01/29/2022) [facility]04-23-2018 History of Past illness Narrative* Problem Noted Date Resolved Date Obesity, Class III, BMI 40-49.9 (morbid obesity) 10/21/2017 11/18/2017 Iliotibial band syndrome of right side 4 09/27/2017 Postconcussion syndrome 01/11/2011 09/28/19 18 Lumbago 02/23/2006 09/27/2017 Attention deficit disorder with hyperactivity(31 4.01) 02/23/2006 09/27/2017 documented as of this encounter (statuses as of 05/04/2022) [facility]-2018 History of Past illness Narrative* Problem Noted Date Resolved Date Obesity, Class III, BMI 40-49.9 (morbid obesity) 10/21/2017 11/18/2017 Iliotibial band syndrome of right side 4 09/27/2017 Postconcussion syndrome 01/11/2011 09/28/19 18 Lumbago 02/23/2006 09/27/2017 Attention deficit disorder with hyperactivity(31 4.01) 02/23/2006 09/27/2017 documented as of this encounter (statuses as of 10/06/2022) [address]23-2018 History of Past illness Narrative* Problem Noted Date Diagnosed Date Resolved Date Obesity, Class III, BMI 40-4 9.9 (morbid obesity) 10/21/2017 11/18/2017 Iliotibial band syndrome of right side 06/30/2014 09/27/2017 Postconcussion syndrome 01/11/201108/31 Lumbago 02/23/2006 09/27/2017 Attention deficit disorder w ith hyperactivity(314.01) 02/23/2006 09/27/2017 documented as of this encounter (statuses as of 03/21/2023) [facility] note* Diagnosis Plant dermatitis- Primary Contact dermatitis and other eczema due to plants (except food) documented in this encounter [facility] note* Diagnosis Poison janelle- Primary Contact dermatitis and other eczema due to plants (except food) documented in this encounter [facility] note* Diagnosis 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- Primary Migraine without aura, without mention of intractable migraine without mention of status migrainosus Obesity, Class II, BMI 35-39.9 Obesity, unspecified Prehypertension Elevated blood pressure reading without diagnosis of hypertension Screening for lipid disorders documented [facility]* Diagnosis Fatty liver disease, nonalcoholic- Primary Other chronic nonalcoholic liver disease Acute right-sided low back pain without sciatica Testicular pain, right Unspecified disorder of male genital organs documented in this encounter [facility]* Diagnosis Rash- Primary Rash and other nonspecific skin eruption [facility] Diagnosis Sinobronchitis- Primary Unspecified sinusitis (chronic) Acute cough Acute cough documented [facility] this encounter [facility]* Diagnosis Sore throat- Primary Acute pharyngitis documented in this encounter [facility]* Diagnosis Chest discomfort- Primary Other chest pain RAKESH (obstructive sleep apnea) Obstructive sleep apnea (adult) (pediatric) Fatigue, unspecified type Polydipsia Elevated glucose Other abnormal glucose Family history of early CAD Family history of ischemic heart disease Restless legs Restless legs syndrome (RLS) documented in this encounter [facility] note* Diagnosis Acute cough documented in this encounter [facility] note* Diagnosis Abnormal EKG- Primary Nonspecific abnormal electrocardiogram (ECG) (EKG) Chest pain, unspecified type Chest discomfort Other chest pain Family history of early CAD Family history of ischemic heart disease Fatigue, unspecified type documented in this encounter [facility] for referral (narrative)* Outpatient Procedure (Routine) - New Request Specialty Diagnoses / Procedures Referred By Sonal t Referred To [facility] Diagnoses Chest discomfort Procedures ECG COMPLETE ECG ROUTINE ECG W/LEAST 12 LDS W/I&R Josselin Garibay, FIELD TECHNICAL ASSISTANT.SCOUT LEASER [address] [place] [address] [facility] [place] [address] [place] [address] Referral ID Status Reason Start Date Expiration Date Visits Requested Visits Authorized [id number] New Request Auto-Generat ed Referral 03/10/2024 03/10/2025 1 1 * Outpatient Procedure (Routine) - Pending Review Specialty Diagnoses / Procedures Referred By Contac t Referred To Contact [facility] Diagnoses Chest discomfort Family history of early CAD Procedures STRESS ECHO TREADMILL ECHO TTHRC R-T 2D W/WO M-MODE COMPLETE REST&ST Josselin Garibay APRN.SCOUT LEASER [address] [place] [address] [address] Referral ID Status Reason Start Date Expiration Date Visits Requested Visits Authorized [id number] Pending Review Auto-Generat ed Referral 03/10/2024 03/10/2025 1 1 * Diagnostic Procedure Only (Routine) - Open Specialty Diagnoses / Procedures Referred By Contac t Referred To Contact [facility] Diagnoses RAKESH (obstructive sleep apnea) Procedures HOME SLEEP APNEA TEST (HSAT) SLEEP STD AIRFLOW HRT RATE&O2 SAT EFFORT UNATT Josselin Garibay APRN.SCOUT LEASER [address] [place] [address] [place] [id number] Referral ID Status Reason Start Date Expiration Date V isits Requested Visits Authorized [id number] Open Auto-Generate d Referral 03/10/2024 03/10/2025 1 1 [facility] for referral (narrative)* Outpatient Procedure (Routine) - New Request Specialty Diagnoses / Procedures Referred By Contac t Referred To Contact [facility] Diagnoses Abnormal EKG Chest pain, unspecified type Chest discomfort Family history of early CAD Fatigue, unspecified type Procedures EXERCISE STRESS ECG (WITHOUT IMAGING) CV STRS TST XERS&/OR RX CONT ECG TRCG ONLY Haagen, Josselin, FIELD TECHNICAL ASSISTANT.SCOUT LEASER [address] [place] [address] [facility] [address] [place] [id number] Referral ID Status Reason Start Date Expiration Date Visits Requested Visits Authorized [id number] New Request Auto-Generat ed Referral 4 04/22/2025 1 1 * Outpatient Procedure (Routine) - New Request Specialty Diagnoses / Procedures Referred By Contac t Referred To Contact [facility] Diagnoses Abnormal EKG Procedures ECHO ECHO TTHRC R-T 2D W/WOM-MODE COMPL SPEC&COLR D Josselin Garibay APRN.CNP [address] [place] [address] [id number] [place] [address] Referral ID Status Reason Start Date Expiration Date Visits Requested Visits Authorized [id number] New Request Auto-Generat ed Referral 4 04/22/2025 1 1 [facility] Summary Purpose Family History No Family History Records FoundNo Family History Records Found Advance Directives No Advanced Directives Records FoundNo Advanced Directives Records Found Additional Source Comments (unrecognized sect ion and content) No Status Records FoundNo Status Records Found INFORMATION SOURCE (unrecogn ized section and content) DATE CREATED AUTHOR 04/11/2019 [facility] DATE CREATED AUTHOR AUTHOR'S ORGANIZ ATION 04/24/2024 [facility] Source Comments (unrecognize d section and content) In the event this informatio n is protected by the Federal Confidentiality of Alcohol and Drug Abuse Patient Records regulations: The Federal rules restrict any use of the information to criminally investigate or prosecute any alcohol or drug abuse patient.[facility] event this information is protected by the Federal Confidentiality of Alcohol and Drug Abuse Patient Records regulations: The Federal rules restrict any use of the information to criminally investigate or prosecute any alcohol or drug abuse patient.[facility] the event this information is protected by the Federal Confidentiality of Alcohol and Drug Abuse Patient Records regulations: The Federal rules restrict any use of the information to criminally investigate or prosecute any alcohol or drug abuse patient.[facility] the event this information is protected by the Federal Confidentiality of Alcohol and Drug Abuse Patient Records regulations: The Federal rules restrict any use of the information to criminally investigate or prosecute any alcohol or drug abuse patient.[facility] the event this information is protected by the Federal Confidentiality of Alcohol and Drug Abuse Patient Records regulations: The Federal rules restrict any use of the information to criminally investigate or prosecute any alcohol or drug abuse patient.[facility] the event this information is protected by the Federal Confidentiality of Alcohol and Drug Abuse Patient Records regulations: The Federal rules restrict any use of the information to criminally investigate or prosecute any alcohol or drug abuse patient.[facility] the event this information is protected by the Federal Confidentiality of Alcohol and Drug Abuse Patient Records regulations: The Federal rules restrict any use of the information to criminally investigate or prosecute any alcohol or drug abuse patient.[facility] the event this information is protected by the Federal Confidentiality of Alcohol and Drug Abuse Patient Records regulations: The Federal rules restrict any use of the information to criminally investigate or prosecute any alcohol or drug abuse patient.[facility] the event this information is protected by the Federal Confidentiality of Alcohol and Drug Abuse Patient Records regulations: The Federal rules restrict any use of the information to criminally investigate or prosecute any alcohol or drug abuse patient.[facility] the event this information is protected by the Federal Confidentiality of Alcohol and Drug Abuse Patient Records regulations: The Federal rules restrict any use of the information to criminally investigate or prosecute any alcohol or drug abuse patient.[facility] the event this information is protected by the Federal Confidentiality of Alcohol and Drug Abuse Patient Records regulations: The Federal rules restrict any use of the information to criminally investigate or prosecute any alcohol or drug abuse patient.[facility] the event this information is protected by the Federal Confidentiality of Alcohol and Drug Abuse Patient Records regulations: The Federal rules restrict any use of the information to criminally investigate or prosecute any alcohol or drug abuse patient.[facility] the event this information is protected by the Federal Confidentiality of Alcohol and Drug Abuse Patient Records regulations: The Federal rules restrict any use of the information to criminally investigate or prosecute any alcohol or drug abuse patient.[facility] Reason for Visit (unrecogniz ed section and content) Reason Comments Rash 6 days Reason Comments Medication Request Reason Comments Headache Follow up Reason Comments ED Follow-up [facility] 09/04/[address] shows fatty infiltration of the liver Reason Comments Rash All over x 1 week Reason Comments Results Reason Comments Cough Cough x 2 weeks and bodyaches and chills x 3 days Reason Comments Sore Throat Nasal drainage x 3 d ays Reason Comments ER F/U [facility] ER 03/01/24 dx: ch est pain Reason Comments Orders Care Teams (unrecognized sec tion and content) Psychic Reader Relationship Specialty Start Date End Date Nena Barrios PA-C [address] [place] [address] PCP - General Family Practice 01/16/22 Psychic Reader Relationship Specialty Start Date End Date Nena Barrios PA-C [address] [place] [address] PCP - General Family Practice 01/16/22 Psychic Reader Relationship Specialty Start Date End Date Nena Barrios PA-C [address] [place] [address] PCP - General Family Medicine 01/16/22 Psychic Reader Relationship Specialty Start Date End Date Nena Barrios PA-C [address] [place] [address] PCP - General Family Medicine 01/16/22 Psychic Reader Relationship Specialty Start Date End Date Nena Barrios PA-C [address] [place], [place] [address] PCP - General Family Medicine 01/16/22 Psychic Reader Relationship Specialty Start Date End Date Nena Barrios PA-C [address] [facility] [place] [address] PCP - General [facility] 01/16/22 Psychic Reader Relationship Specialty Start Date End Date Nena Barrios PA-C [address] [facility] [place] [address] PCP - [facility] 01/16/22 Psychic Reader Relationship Specialty Start Date End Date Nena Barrios PA-C [address] [facility] [place] [address] PCP - [facility] 01/16/22 Psychic Reader Relationship Specialty Start Date End Date Nena Barrios PA-C [address] [facility] [place] [address] PCP - [facility] 01/16/22 Psychic Reader Relationship Specialty Start Date End Date Nena Barrios PA-C [address] [facility] [place] [address] PCP - General Family [facility] 01/16/22 Psychic Reader Relationship Specialty Start Date End Date Nena Barrios PA-C [address] [facility] [place] [address] PCP - General Family Medicine 01/16/22 FOR RECORDS PERTAINING TO PATIENTS WHO ARE OR HAVE BEEN ENROLLED IN A CHEMICAL DEPENDENCY/SUBSTANCEABUSE PROGRAM, SOME INFORMATION MAY BE OMITTED. This clinical summary was aggregated from multiple sources. Caution should be exercised in using it in the provision of clinical care. This summary normalizes information from multiple sources, and as a consequence, information in this document may materially change the coding, format and clinical context of patient data. In addition, data may be omitted in some cases. CLINICAL DECISIONS SHOULD BE BASED ON THE PRIMARY CLINICAL RECORDS. [facility] [employer] [facility]. provides no warranty or guarantee of the accuracy or completeness of information in this document.
== END 2024-04-27 19:56 | disposition left against medical advice (07) ==
LOC: ED 19:57
PROVIDERS: PCP Physician Assistant
DX: Z53.21 Procedure and treatment not carried out due to patient leaving prior to being seen by health care provider (principal)

== ENCOUNTER → 2024-07-14 | Outpatient (CLI) | payer BC, SELFPAY ==
[2024-07-14 12:57] LABS: Anion Gap 6 (5-15); BUN 16 mg/dL (7-18); BUN/Creat Ratio 14.3 RATIO (10-20); Calcium,Total 9.3 mg/dL (8.5-10.1); Chloride 107 mmol/L (98-107); Creatinine, Serum 1.12 mg/dL (0.70-1.30); EST Glomerular Filtration Rate 81 mL/min (>60); Est Glom Filt Rate - Afr Amer 99 mL/min (>60); Glucose 93 mg/dL (74-106); Potassium 4.2 mmol/L (3.5-5.1); Sodium Level 140 mmol/L (136-145)
[2024-07-14 15:16] LABS: Absolute Lymphocyte Count 1.57 X10^3/uL (0.83-4.51); Absolute Neutrophil Count 4.6 X10^3/uL (2.0-7.7); Basophil# 0.04 X10^3/uL; Basophil% 0.6 % (0-1); Eosinophil# 0.07 X10^3/uL; Hematocrit 43.1 % (40-54); Hemoglobin 14.2 g/dL (13.0-16.5); Lymphocyte # 1.57 X10^3/ul (0.83-4.51); Mean Corp Hgb Conc 32.9 g/dL (32-36); Mean Corpuscular Hgb 28.2 pg (27.0-32.0); Mean Corpuscular Volume 85.5 fL (80-94); Mean Platelet Vol. 11.6 fl (6.2-12.0); Monocyte# 0.57 X10^3/uL; Monocyte% 8.4 % (0-10); NRBC Flagged by Analyzer 0 % (0-5); Neutrophil # 4.55 X10^3/uL (2.7-7.7); Neutrophil % 66.7 % (47-70); Platelet Count 201 K/mm3 (150-450); RBC Distribution Width SD 40.3 fl (35.1-43.9); Red Blood Count 5.04 M/mm3 (4.6-6.2); White Blood Count 6.8 K/mm3 (4.4-11.0)
== END | disposition home or self-care (01) ==
PROVIDERS: PCP Physician Assistant; Referring Provider Physician Assistant Surgical; Visit Provider Physician Assistant Surgical
DX: Z01.818 Encounter for other preprocedural examination (principal)
CPT/HCPCS: 36415; 80048; 85025